=== PATIENT | male | born 1960 | race Caucasian/White ===

== ENCOUNTER 2017-07-20 15:47 | Emergency (ER) | payer MEDICARE ==
[~2017-07-20] VITALS: Ht 175.3 cm; Wt 71.2 kg
[~2017-07-20 15:47] MED LIST: AMOXICILLIN 50500 MG PO; ASPIR 8181 MG PO; ASPIR-TRIN325 MG PO; ASPIRIN325 PO; CARAFATE 1 GM TA1 G1 PO; CARAFATE 1 GM TA1 GM PO; CARAFATE 11 GM/10 M1 PO; CARAFATE1 GM PO; CLONAZEPAM 0.50.5 M1 PO; COLACE100 MG PO; DOXYCYCLINE 10100 MG PO; FLOMAX0.4 MG PO; GENTAMICIN SU3 MG/ML OPHTHALMIC; HYDROCHLOROTH12.5 M1 PO; HYDROCODON-ACE1 EA14 PO; HYDROCODON-ACE1 EAC7 PO; HYDROCODONE-AP1 EAC6 PO; HYDROCODONE-APA1 TA1 PO; IBUPROFEN 800800 M1 PO; LIDOPATCH1 EACH TOP; LIPITOR10 MG PO; LOVASTATIN 20 M20 MG PO; MIRALAX17 GM PO; NITROGLYCERIN0.4 MG SUBLING; NOHOMEMEDICATIONS; NORCO 10-325 T1 EACH PO; NORCO 5-325 TA1 EAC1 PO; OMEPRAZOLE 20 M20 M1 PO; OMEPRAZOLE40 MG PO; ONDANSETRON HCL4 M2 PO; PANTOPRAZOLE SO40 M1 PO; PENICILLIN VK500 MG PO; PRILOSEC 10MG C10 M1 PO; PROTONIX40 M1 PO; ROBAXIN500 MG PO; SARNA ANTI-ITC222 ML TP; TRAMADOL 50 MG50 MG PO; TRIAMCINOLONE A80 G2 TOP; TYLENOL325 MG PO; VENTOLIN HFA INH8 GM INH; VISTARIL 25 MG25 M1 PO; ZOFRAN ODT4 MG DISSOLVE; ZOFRAN ODT4 MG PO; ZOFRAN ODT4 MG SUBLING; ZPAK PO
[2017-07-20 16:22] LABS: ABSOLUTE EOSINOPHILS 0.1 thou/uL (0.0-0.7); ABSOLUTE LYMPHOCYTES 2.1 thou/uL (0.8-5.3); ABSOLUTE MONOCYTES 1.1 thou/uL (0.0-1.2); ABSOLUTE NEUTROPHILS 5.3 thou/uL (1.6-8.1); BASOPHILS 0.5 %; EOSINOPHILS 1.6 %; HEMATOCRIT 37.6 % (42.0-52.0); HEMOGLOBIN 13.2 gm/dL (14.0-18.0); LYMPHOCYTES 23.9 %; MCH 33.9 pg (26.0-34.0); MCHC 35.1 g/dL (28.0-37.0); MCV 96.7 fL (80.0-100.0); MONOCYTES 12.8 %; MPV 6.8 fl. (7.2-11.1); NUCLEATED RBCS 0 /100WBC; PLATELET COUNT* 269 thou/uL (150-400); POLYS 61.2 %; RBC 3.89 mil/uL (4.50-6.00); RDW-CV 13.8 % (10.5-14.5); WBC 8.6 thou/uL (4.0-11.0)
[2017-07-20 16:31] LABS: ANION GAP 9 mmol/L (7-16); BUN 14 mg/dL (7-18); CALCIUM 9.1 mg/dL (8.5-10.1); CHLORIDE 104 mmol/L (98-107); CO2 25 mmol/L (21-32); CREATININE 0.9 mg/dL (0.6-1.3); GLUCOSE 110 mg/dL (70-99); POTASSIUM 3.7 mmol/L (3.5-5.1); SODIUM 138 mmol/L (136-145)
[2017-07-20 16:38] LABS: ALBUMIN 3.5 g/dL (3.4-5.0); ALKALINE PHOSPHATASE 123 U/L (46-116); SGOT 28 U/L (15-37); SGPT 39 U/L (30-65); TOTAL BILIRUBIN 0.6 mg/dL (<0.1-1.0); TROPONIN-I LEVEL <0.06 ng/mL (<0.06)
[2017-07-20] MEDS ORDERED: BACTRIM DS TAB1 EACH PO (17:26)
[2017-07-20] MEDS ORDERED: KEFLEX500 M1 PO (17:26)
[2017-07-20 17:58] VITALS: BP 130/73
--- NOTE | 2017-07-21 14:36 | EKG ---
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: LUPE : 1960 Requested By: Mary Motley Order Number: [id number] MD: Christian Smith Measurements Intervals [place] Rate: 87 P: -11 [place]: 187 QRS: 6 QRSD: 84 T: 33 QT: 343 QTc: 413 Interpretive Statements Sinus rhythm Low voltage, precordial leads Minimal ST elevation, anterior leads Compared to ECG 07/06/2017 03:13:08 Myocardial infarct finding no longer present ST (T wave) deviation still present Electronically Signed On 07-21-2017 14:36:53 KALSOMINER by Christian Smith [email or web address] <ELECTRONICALLY SIGNED> By: Christian Smith MD, [facility] 07/21/17 1436 1614 1614 Christian Smith MD, [facility] /EPI
== END 2017-07-20 18:00 | disposition home or self-care (01) ==
LOC: M.ERS 15:47
PROVIDERS: Physician Assistant
DX: L03.115 Cellulitis of right lower limb (principal); F17.210 Nicotine dependence, cigarettes, uncomplicated; F10.99 Alcohol use, unspecified with unspecified alcohol-induced disorder; I25.2 Old myocardial infarction; Z86.73 Personal history of transient ischemic attack (TIA), and cerebral infarction without residual deficits; Z85.12 Personal history of malignant neoplasm of trachea; Z88.5 Allergy status to narcotic agent; Z90.49 Acquired absence of other specified parts of digestive tract; Z98.890 Other specified postprocedural states

== ENCOUNTER 2017-07-28 17:57 | Emergency (ER) | payer MEDICARE ==
[~2017-07-28] VITALS: Ht 175.3 cm; Wt 95.3 kg
[~2017-07-28 17:57] MED LIST changes: +BACTRIM DS TAB1 EACH PO; +KEFLEX500 M1 PO
[2017-07-28 18:34] LABS: ABSOLUTE BASOPHILS 0.1 thou/uL (0.0-0.2); ABSOLUTE EOSINOPHILS 0.1 thou/uL (0.0-0.7); ABSOLUTE LYMPHOCYTES 2.7 thou/uL (0.8-5.3); ABSOLUTE MONOCYTES 0.8 thou/uL (0.0-1.2); ABSOLUTE NEUTROPHILS 4.2 thou/uL (1.6-8.1); BASOPHILS 0.7 %; EOSINOPHILS 1.7 %; HEMATOCRIT 41.5 % (42.0-52.0); HEMOGLOBIN 14.4 gm/dL (14.0-18.0); LYMPHOCYTES 34.2 %; MCH 33.9 pg (26.0-34.0); MCHC 34.7 g/dL (28.0-37.0); MCV 97.6 fL (80.0-100.0); MONOCYTES 10.5 %; MPV 6.8 fl. (7.2-11.1); NUCLEATED RBCS 0 /100WBC; PLATELET COUNT* 290 thou/uL (150-400); POLYS 52.9 %; RBC 4.26 mil/uL (4.50-6.00); RDW-CV 13.4 % (10.5-14.5)
[2017-07-28 18:42] LABS: CALCIUM 8.9 mg/dL (8.5-10.1); CREATININE 0.9 mg/dL (0.6-1.3); POTASSIUM 4.4 mmol/L (3.5-5.1)
[2017-07-28 18:46] LABS: ALBUMIN 3.2 g/dL (3.4-5.0); TOTAL BILIRUBIN 0.2 mg/dL (<0.1-1.0); TOTAL PROTEIN 6.9 g/dL (6.4-8.2)
[2017-07-28 19:22] VITALS: BP 132/85
== END 2017-07-28 19:22 | disposition home or self-care (01) ==
LOC: M.ERS 17:57
PROVIDERS: Physician Assistant
DX: R10.84 Generalized abdominal pain (principal); F17.210 Nicotine dependence, cigarettes, uncomplicated; I25.2 Old myocardial infarction; C14.0 Malignant neoplasm of pharynx, unspecified; N19 Unspecified kidney failure; I82.409 Acute embolism and thrombosis of unspecified deep veins of unspecified lower extremity; K85.90 Acute pancreatitis without necrosis or infection, unspecified; Z88.5 Allergy status to narcotic agent; Z98.890 Other specified postprocedural states; Z90.49 Acquired absence of other specified parts of digestive tract

== ENCOUNTER 2017-07-30 07:46 | Emergency (ER) | payer MEDICARE ==
[~2017-07-30] VITALS: Ht 175.3 cm; Wt 71.7 kg
[2017-07-30 08:19] LABS: URINE BILIRUBIN NEGATIVE (Negative); URINE BLOOD NEGATIVE (Negative); URINE CLARITY CLEAR; URINE COLOR YELLOW; URINE GLUCOSE-RANDOM NEGATIVE (Negative); URINE KETONES NEGATIVE (Negative); URINE LEUKOCYTES-REFLEX NEGATIVE (Negative); URINE NITRITE-REFLEX NEGATIVE (Negative); URINE PROTEIN NEGATIVE (Negative); URINE SPECIFIC GRAVITY 1.025 (1.005-1.030); URINE UROBILINOGEN 0.2 E.U./dl (0.2-1.0)
[2017-07-30 08:36] LABS: ABSOLUTE BASOPHILS 0.1 thou/uL (0.0-0.2); ABSOLUTE EOSINOPHILS 0.1 thou/uL (0.0-0.7); ABSOLUTE LYMPHOCYTES 2.5 thou/uL (0.8-5.3); ABSOLUTE MONOCYTES 0.7 thou/uL (0.0-1.2); ABSOLUTE NEUTROPHILS 3.6 thou/uL (1.6-8.1); BASOPHILS 0.9 %; EOSINOPHILS 1.8 %; HEMATOCRIT 43.7 % (42.0-52.0); HEMOGLOBIN 15.4 gm/dL (14.0-18.0); LYMPHOCYTES 35.7 %; MCH 33.7 pg (26.0-34.0); MCHC 35.2 g/dL (28.0-37.0); MCV 95.7 fL (80.0-100.0); MONOCYTES 10.2 %; MPV 6.9 fl. (7.2-11.1); NUCLEATED RBCS 0 /100WBC; PLATELET COUNT* 292 thou/uL (150-400); POLYS 51.4 %; RBC 4.56 mil/uL (4.50-6.00); RDW-CV 13.7 % (10.5-14.5)
[2017-07-30 08:48] LABS: CALCIUM 8.9 mg/dL (8.5-10.1); CREATININE 0.7 mg/dL (0.6-1.3); POTASSIUM 4.3 mmol/L (3.5-5.1)
[2017-07-30 08:53] LABS: ALBUMIN 3.4 g/dL (3.4-5.0); TOTAL BILIRUBIN 0.2 mg/dL (<0.1-1.0); TOTAL PROTEIN 7.3 g/dL (6.4-8.2)
[2017-07-30] MEDS ORDERED: FLOMAX0.4 MG PO (09:09)
[2017-07-30] MEDS ORDERED: NAPROSYN500 MG PO (09:09)
[2017-07-30 09:24] VITALS: BP 150/95
== END 2017-07-30 09:26 | disposition home or self-care (01) ==
LOC: M.ERS 07:46
PROVIDERS: Personal Emergency Response Attendant
DX: N20.0 Calculus of kidney (principal); I25.2 Old myocardial infarction; N19 Unspecified kidney failure; F10.99 Alcohol use, unspecified with unspecified alcohol-induced disorder; Z95.5 Presence of coronary angioplasty implant and graft; Z86.718 Personal history of other venous thrombosis and embolism; Z98.890 Other specified postprocedural states; Z87.19 Personal history of other diseases of the digestive system; Z88.4 Allergy status to anesthetic agent; Z88.5 Allergy status to narcotic agent; F17.210 Nicotine dependence, cigarettes, uncomplicated

== ENCOUNTER 2017-08-02 18:32 | Inpatient (IN) | payer MEDICARE ==
[~2017-08-02] VITALS: Ht 152.4 cm; Wt 81.6 kg
[~2017-08-02 18:32] MED LIST changes: +NAPROSYN500 MG PO
[2017-08-02 19:00] LABS: ABSOLUTE BASOPHILS 0.1 thou/uL (0.0-0.2); ABSOLUTE EOSINOPHILS 0.2 thou/uL (0.0-0.7); ABSOLUTE MONOCYTES 0.9 thou/uL (0.0-1.2); ABSOLUTE NEUTROPHILS 5.8 thou/uL (1.6-8.1); EOSINOPHILS 1.5 %; HEMATOCRIT 44.7 % (42.0-52.0); LYMPHOCYTES 30.2 %; MCH 34.2 pg (26.0-34.0); MCHC 35.7 g/dL (28.0-37.0); MCV 95.9 fL (80.0-100.0); MONOCYTES 9.3 %; MPV 7.1 fl. (7.2-11.1); NUCLEATED RBCS 0 /100WBC; PLATELET COUNT* 298 thou/uL (150-400); RBC 4.66 mil/uL (4.50-6.00); RDW-CV 13.3 % (10.5-14.5)
[2017-08-02 19:08] LABS: ANION GAP 12 mmol/L (7-16); BUN 19 mg/dL (7-18); CALCIUM 8.6 mg/dL (8.5-10.1); CHLORIDE 100 mmol/L (98-107); CO2 21 mmol/L (21-32); CREATININE 0.9 mg/dL (0.6-1.3); GLUCOSE 141 mg/dL (70-99); POTASSIUM 4.2 mmol/L (3.5-5.1); SODIUM 133 mmol/L (136-145)
[2017-08-02 19:13] LABS: APTT 24.6 Seconds (25.0-31.3); PROTIME 9.4 Seconds (9.20-11.50)
[2017-08-02 19:23] LABS: TROPONIN-I LEVEL <0.06 ng/mL (<0.06)
[2017-08-02 21:46] VITALS: BP 107/64
[2017-08-02 22:00] VITALS: BP 116/85
[2017-08-02 23:00] VITALS: BP 128/79
[2017-08-02 23:30] VITALS: BP 123/80
[2017-08-03] VITALS (13 sets, daily range): BP systolic 92–132; BP diastolic 45–556
[2017-08-03 06:28] LABS: ANION GAP 7 mmol/L (7-16); BUN 17 mg/dL (7-18); CALCIUM 9.1 mg/dL (8.5-10.1); CHLORIDE 104 mmol/L (98-107); CO2 26 mmol/L (21-32); CREATININE 0.9 mg/dL (0.6-1.3); GLUCOSE 108 mg/dL (70-99); POTASSIUM 4.6 mmol/L (3.5-5.1); SODIUM 137 mmol/L (136-145)
[2017-08-03 06:35] LABS: ALBUMIN 3.2 g/dL (3.4-5.0); ALKALINE PHOSPHATASE 120 U/L (46-116); SGOT 32 U/L (15-37); SGPT 69 U/L (30-65); TOTAL BILIRUBIN 0.2 mg/dL (<0.1-1.0); TOTAL PROTEIN 6.5 g/dL (6.4-8.2)
[2017-08-03 06:55] LABS: TROPONIN-I LEVEL <0.06 ng/mL (<0.06)
[2017-08-03 09:40] LABS: AMP/METHAMP Negative (Negative); BARBITURATES Negative (Negative); BENZODIAZEPINES Negative (Negative); COCAINE Negative (Negative); METHADONE Negative (Negative); OPIATES POSITIVE (Negative); PCP Negative (Negative); THC Negative (Negative)
[2017-08-03] MEDS ORDERED: DILTIAZEM 24HR180 M1 PO (12:41)
--- NOTE | 2017-08-03 13:01 | CARD ---
[address] [address] CARDIAC CATH REPORT Name: MARNIETERESA BUSTAMANTE Room: 005-P ADM IN .R.#: [id number] Admission: 08/02/17 Attend Phys: Charli Das MD Discharge: Date of : 64 Report #: [id number] THIS REPORT FOR: //name// APPROVED REPORT Patient Details Patient Status: In-Patient Room #: 005 The patient is a 57 year-old male Event Personnel Rashad Allan Charge Account Identification Clerk, Renae iGll RN Sub Assembly Team Worker, Alina Lebron RTR Scrub, Hollie Hooper Monitor, Linda Pandya RN, RN Procedures Performed Left Heart Catheterization, Selective Right and Left Coronary Angiography Procedure Narrative A 6fr Ultimum Sheath sheath was inserted into the . Coronary angiography was performed using coronary diagnostic catheters. The right coronary system was accessed and visualized with a Diagnostic 6fr jr4 catheter. The left coronary system was accessed and visualized with a Diagnostic 6f jl4 catheter. The left ventricle was accessed and visualized with a Diagnostic 6f pigtail catheter. Left ventricular/Aortic Valve gradient assessed via catheter pullback. Left ventriculogram was performed in NELSON projection. Pre-demployment femoral angiogram was performed . Closure device was deployed with a 6 Fr MynxGrip 6/7F. Hemostasis was obtained with manual pressure following sheath removal without any complications. The patient tolerated the procedure well and there were no complications associated with the procedure. There was no hematoma. Intraoperative Conscious Sedation Sedation start time: 10:42 Case end Time: 10:56 Versed 2 mg Fluoro Time: 1.6 minutes Dose: DAP 70695 cGycm2 690.11 mGy Contrast Type and Amount: Omnipaque 160 ml Coronary Angiography The patient's coronary [place] [address] CARDIAC CATH REPORT Name: MARNIETERESA BUSTAMANTE Room: [address] IN [facility].#: [id number] Admission: 08/02/17 Attend Phys: Charli Das MD Discharge: Date of : 64 Report #: [id number] Diagnostic Cath Left Main The left main coronary artery is normal and bifurcates into the left anterior descending and circumflex coronary arteries. LAD The left anterior descending coronary artery has 30% narrowing proximally, 20% narrowing midportion and 10% narrowing in the apical portion. Diagonal 1 The first diagonal branch is large and branched and normal. Circumflex The circumflex proper is normal in its proximal mid and distal portion. OM1 The first obtuse marginal branch has 20% narrowing proximally. The remainder of the vessel is free of significant disease. OM2 The second obtuse marginal branch is 10% narrowing proximally. The remainder of the vessel is free of significant disease. Right Coronary The right coronary artery is 10% narrowed in its proximal portion 10% narrowed in its midportion and free of significant atherosclerosis in its distal portion. There is a focal area of myocardial bridging in the distal vessel. R PDA The right PDA is a moderate to large size branch that is normal. RPLV The right posterior lateral LV branch is a small branch that is normal. Left Ventriculography The overall left ventricular systolic function appears to be well preserved with an ejection fraction estimated to be 60-65%. There is a moderate portion of the apex appears akinetic. Hemodynamics The aortic pressure is 98/59 mmHg with a mean of 75 mmHg. The left ventricular pressure is 103/4 mmHg with a mean of mmHg. The left ventricular end diastolic pressure is 10 mmHg. There was no gradient across the aortic valve upon pullback. Pullback from the left ventricle to the aorta revealed no gradient across the aortic valve. Conclusion 1. Mild atherosclerotic coronary artery disease as outlined above. 2. Apical wall motion abnormality consistent with prior infarct. 3. Preserved left ventricular systolic function. 4. Normal left ventricular end-diastolic [place] [address] CARDIAC CATH REPORT Name: TERESA DYE Room: [address] IN [facility].#: [id number] Admission: 08/02/17 Attend Phys: Charli Das MD Discharge: Date of : 64 Report #: [id number] 1. Continue aggressive risk factor modification and medical management. <ELECTRONICALLY SIGNED> By: Rashad Allan MD, FACNiru 08/03/17 1300 1300 1300Rashad Allan MD, FACNiru /INF
--- NOTE | 2017-08-03 14:42 | EKG ---
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: MS : 1960 Requested By: Juan Pablo Fan Order Number: [id number] [place] MD: Rashad Allan Measurements Intervals [place] Rate: 93 P: 51 NV: 171 QRS: 7 QRSD: 84 T: 77 QT: 316 QTc: 393 Interpretive Statements Sinus rhythm Anterior infarct, old Compared to ECG 07/20/2017 16:14:20 Myocardial infarct finding now present ST (T wave) deviation no longer present Electronically Signed On 08-03-2017 14:41:49 FILM SPOOLER by Rashad Allan [email or web address] <ELECTRONICALLY SIGNED> By: Rashad Allan MD, FAC 08/03/17 1441 1845 1845 Rashad Allan MD, [facility] /EPI
--- NOTE | 2017-08-03 14:42 | EKG ---
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: AJ : 1960 Requested By: Nima Rodrigues Order Number: [id number] MD: Rashad Allan Measurements Intervals [place] Rate: 91 P: -7 MS: 174 QRS: 15 QRSD: 82 T: 58 QT: 326 QTc: 402 Interpretive Statements Sinus rhythm Probable anteroseptal infarct, age indeterminate Compared to ECG 07/20/2017 16:14:20 Myocardial infarct finding now present ST (T wave) deviation no longer present Electronically Signed On 08-03-2017 14:42:00 STRIPPER BLACK AND WHITE by Rashad Allan [email or web address] <ELECTRONICALLY SIGNED> By: Rashad Allan MD, FACC 08/03/17 1442 25 25 Rashad Allan MD, FAC /EPI
--- NOTE | 2017-08-03 14:44 | EKG ---
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: : 1960 Requested By: Nima Rodrigues Order Number: [id number] Carolina MD: Rashad Allan Measurements Intervals [place] Rate: 72 P: 5 [place]: 191 QRS: 2 QRSD: 84 T: 57 QT: 359 QTc: 393 Interpretive Statements Sinus rhythm Low voltage, precordial leads Inferior infarct age indeterminate Minimal ST elevation, anterior leads Compared to ECG 07/20/2017 16:14:20 No significant changes Electronically Signed On 08-03-2017 14:44:40 LINING SCRUBBER by Rashad Allan [email or web address] <ELECTRONICALLY SIGNED> By: Rashad Allan MD, FAC 08/03/17 1444 2314 2314 Rashad Allan MD, [facility] /EPI
--- NOTE | 2017-08-03 14:45 | EKG ---
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: : 1960 Requested By: Juan Pablo Fan Order Number: [id number] Carolina MD: Rashad Allan Measurements Intervals [place] Rate: 60 P: -3 [place]: 190 QRS: -7 QRSD: 86 T: 48 QT: 368 QTc: 368 Interpretive Statements Sinus rhythm Low voltage, precordial leads Minimal ST elevation, anterior leads Compared to ECG 07/20/2017 16:14:20 No significant changes Electronically Signed On 08-03-2017 14:45:44 SALES PRODUCT MANAGER by Rashad Allan [email or web address] <ELECTRONICALLY SIGNED> By: Rashad Allan MD, [facility] 08/03/17 1445 0803 0803 Rashad Allan MD, [facility] /EPI
[2017-08-04] VITALS: BP 116/63
[2017-08-04 04:00] VITALS: BP 123/60
[2017-08-04 04:43] LABS: HEMATOCRIT 38.2 % (42.0-52.0); MCH 33.3 pg (26.0-34.0); MCHC 34.6 g/dL (28.0-37.0); MCV 96.2 fL (80.0-100.0); MPV 7.1 fl. (7.2-11.1); NUCLEATED RBCS 0 /100WBC; PLATELET COUNT* 228 thou/uL (150-400); RBC 3.97 mil/uL (4.50-6.00); RDW-CV 13.3 % (10.5-14.5); WBC 8.7 thou/uL (4.0-11.0)
[2017-08-04 04:50] LABS: CALCIUM 8.9 mg/dL (8.5-10.1); CREATININE 0.9 mg/dL (0.6-1.3); POTASSIUM 4.4 mmol/L (3.5-5.1)
[2017-08-04 04:54] LABS: HEMOGLOBIN 13.2 gm/dL (14.0-18.0)
[2017-08-04 06:27] LABS: ABSOLUTE EOSINOPHILS 0.3 thou/uL (0.0-0.7); ABSOLUTE LYMPHOCYTES 2.6 thou/uL (0.8-5.3); ABSOLUTE MONOCYTES 0.6 thou/uL (0.0-1.2); ABSOLUTE NEUTROPHILS 5.2 thou/uL (1.6-8.1)
[2017-08-04 06:28] LABS: PLATELET ESTIMATE ADEQUATE
[2017-08-04 08:55] VITALS: BP 112/57
--- NOTE | 2017-08-04 09:11 | CON ---
[address] [address] CONSULTATION Name: TERESA DYE Room: [address] IN M.R.#: [id number] Admission: 08/02/17 Attend Phys: Charli Das MD Discharge: Date of : 64 Report #: [id number] THIS REPORT FOR: //name// CC: [facility] physician/PCP Charli Das INDICATION: Chest pain and abnormal EKG. HISTORY OF PRESENT ILLNESS: The patient is a 57-year-old gentleman with history of coronary artery disease. 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 At that time, he had a failed intervention. He has fixed inferoapical defect from this prior infarct. Catheterization in 2013, showed no occlusive disease. The apical LAD was not mentioned per se. The patient presented to the hospital with midsternal chest discomfort radiating to the left shoulder and arm associated with diaphoresis and shortness of breath. This was sudden in onset yesterday after eating. The pain resolved after nitroglycerin, aspirin, and morphine. EKG shows persistent ST elevation in the anterior leads and Q-waves in the inferior leads. Troponin is less than 0.06. At the time of interview, the patient is not having chest pain. He is without other cardiac complaint at this time. PAST MEDICAL HISTORY: 1. Coronary artery disease as outlined above. 2. Tobacco use. 3. Hyperlipidemia. 4. Hypertension. 5. Figueroa's esophagitis. 6. Throat cancer. PAST SURGICAL HISTORY: 1. Previous back surgery. 2. Appendectomy. 3. Shoulder surgery. 4. Cholecystectomy. SOCIAL HISTORY: The patient smokes half a pack of cigarettes daily. He drinks alcohol occasionally. He has a history of polysubstance abuse in the past. FAMILY HISTORY: Father of esophageal cancer at age 57. The patient's mother has history of TIA. There was no history of premature atherosclerotic coronary artery disease. REVIEW OF SYSTEMS: He reports a cough that is nonproductive. He has chest discomfort as outlined above. He has dyspnea on exertion. He reports syncope last week. He reports dark stools last Sunday. He reports a history of throat cancer, medically treated in the past. He has a history of DVT and PE. He reports medical allergies to FENTANYL and CODEINE. He has dentures. Otherwise, [place] [address] CONSULTATION Name: MARNIETERESA MUNOZERY Room: [address]#: [id number] Admission: 08/02/17 Attend Phys: Charli Das MD Discharge: Date of : 64 Report #: [id number] 14-point review of systems unremarkable. PHYSICAL EXAMINATION: VITAL SIGNS: Stable. Blood pressure 100/73, pulse 62 and regular. GENERAL: This is a pleasant gentleman who does not appear to be in distress. Mood and affect appropriate. HEENT: Extraocular muscles are intact. Mucous membranes are moist. NECK: Shows no jugular venous distention. There are no carotid bruits. CHEST: Reveals clear lung feliz without wheezes or rales. CARDIAC: Reveals a regular rhythm with normal S1 and S2. I do not appreciate gallop or murmur. ABDOMEN: Reveals normal bowel sounds. The abdomen is soft and nontender. EXTREMITIES: Shows no edema. Peripheral pulses are 2+ and easily palpable. SKIN: Warm and dry. A 12-lead EKG shows ST elevation in the anterior leads that appears to be persistent. There are Q-waves inferiorly, suggesting prior inferior infarct. Labs are reviewed. Troponin less than 0.06. Chest x-ray shows no acute cardiopulmonary abnormality. IMPRESSION AND RECOMMENDATIONS: 1. Chest discomfort, suspicious for unstable angina. The patient with history of coronary artery disease. We will proceed with cardiac catheterization. Further intervention will be pending the results of that study. 2. Coronary artery disease, recommend continue daily aspirin. We would check fasting lipid profile. We would treat for goal LDL of 100 or less. 3. Hypertension. Blood pressure low normal presently. We will follow. 4. Chronic tobacco abuse, cessation advised. <ELECTRONICALLY SIGNED> By: Rashad Allan MD, FACC 08/04/17 0911 0953 1536Micalbin Allan MD, FACC /nt
[2017-08-04 09:27] LABS: CHOLESTEROL 165 mg/dL (<200); HDL CHOLESTEROL 22 mg/dL (>40); LDL CHOLESTEROL 70 mg/dL (<100); TC:HDL 7.5 Ratio (Not establshd); TRIGLYCERIDE 368 mg/dL (<150); VLDL 74 mg/dL (<40)
[2017-08-04 09:29] LABS: SERUM ASSESSMENT Clear
[2017-08-04 10:53] VITALS: BP 112/57
[2017-08-04] MEDS ORDERED: ASPIRIN325 PO (10:53)
== END 2017-08-04 11:25 | disposition home or self-care (01) | DRG 392 ==
LOC: M.ERS 18:32 → M.ICU 19:28 → M.TBA-ER 19:28 → M.ICU 21:43 → M.2W 08-03 17:48
PROVIDERS: Emergency Medicine; Internal Medicine; Internal Medicine Cardiovascular Disease; ADMIT Internal Medicine
PROC: B2111ZZ Fluoroscopy of Multiple Coronary Arteries using Low Osmolar Contrast (ICD-10-PCS; principal; 2017-08-02)
PROC: 4A023N7 Measurement of Cardiac Sampling and Pressure, Left Heart, Percutaneous Approach (ICD-10-PCS; principal; 2017-08-02)
PROC: B2151ZZ Fluoroscopy of Left Heart using Low Osmolar Contrast (ICD-10-PCS; principal; 2017-08-02)
DX: K21.9 Gastro-esophageal reflux disease without esophagitis (principal); K22.70 Barrett's esophagus without dysplasia; F17.210 Nicotine dependence, cigarettes, uncomplicated; I10 Essential (primary) hypertension; E78.5 Hyperlipidemia, unspecified; Z96.612 Presence of left artificial shoulder joint; Z96.653 Presence of artificial knee joint, bilateral; Z85.89 Personal history of malignant neoplasm of other organs and systems; Z86.73 Personal history of transient ischemic attack (TIA), and cerebral infarction without residual deficits; I25.2 Old myocardial infarction; Z86.718 Personal history of other venous thrombosis and embolism; Z90.49 Acquired absence of other specified parts of digestive tract; Z88.6 Allergy status to analgesic agent; Z88.8 Allergy status to other drugs, medicaments and biological substances; Z80.0 Family history of malignant neoplasm of digestive organs; Z95.5 Presence of coronary angioplasty implant and graft; Z91.19 Patient's noncompliance with other medical treatment and regimen; Z79.899 Other long term (current) drug therapy; I25.10 Atherosclerotic heart disease of native coronary artery without angina pectoris

== ENCOUNTER 2017-08-05 16:11 | Emergency (ER) | payer MEDICARE ==
[~2017-08-05] VITALS: Ht 175.3 cm; Wt 66.7 kg
[~2017-08-05 16:11] MED LIST changes: +DILTIAZEM 24HR180 M1 PO
[2017-08-05 17:11] VITALS: BP 141/95
== END 2017-08-05 17:12 | disposition home or self-care (01) ==
LOC: M.ERS 16:11
DX: G89.18 Other acute postprocedural pain (principal); I25.2 Old myocardial infarction; N19 Unspecified kidney failure; F17.210 Nicotine dependence, cigarettes, uncomplicated; F10.99 Alcohol use, unspecified with unspecified alcohol-induced disorder; Z95.5 Presence of coronary angioplasty implant and graft; Z98.890 Other specified postprocedural states; Z86.718 Personal history of other venous thrombosis and embolism; Z87.19 Personal history of other diseases of the digestive system; Z88.5 Allergy status to narcotic agent; Z88.4 Allergy status to anesthetic agent

== ENCOUNTER 2017-08-08 20:32 | Emergency (ER) | payer MEDICARE ==
[~2017-08-08] VITALS: Ht 175.3 cm; Wt 67.1 kg
[2017-08-08 20:36] VITALS: BP 136/88
[2017-08-08] MEDS ORDERED: FLEXERIL PO (20:56)
--- NOTE | 2017-08-14 16:24 | EKG ---
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 Singer: AGNES : 1960 Requested By: Jostin Colin Order Number: [id number] MD: Rashad Allan Measurements Intervals [place] Rate: 72 P: 35 MS: 197 QRS: 16 QRSD: 85 T: 33 QT: 386 QTc: 423 Interpretive Statements Sinus rhythm Early repolarization in anterior leads Low voltage, precordial leads Compared to ECG 08/03/2017 08:03:36 ST (T wave) deviation no longer present Electronically Signed On 08-14-2017 16:24:22 TEEN COUNSELOR by Rashad Allan [email or web address] <ELECTRONICALLY SIGNED> By: Rashad Allan MD, FAC 08/14/17 1624 2154 2154 Rashad Allan MD, [facility] /EPI
== END 2017-08-08 21:05 | disposition home or self-care (01) ==
LOC: M.ERS 20:32
DX: S46.812A Strain of other muscles, fascia and tendons at shoulder and upper arm level, left arm, initial encounter (principal); F17.210 Nicotine dependence, cigarettes, uncomplicated; Z86.718 Personal history of other venous thrombosis and embolism; Z90.49 Acquired absence of other specified parts of digestive tract; Z88.5 Allergy status to narcotic agent; X50.1XXA Overexertion from prolonged static or awkward postures, initial encounter; Y93.89 Activity, other specified; Y92.89 Other specified places as the place of occurrence of the external cause; Y99.8 Other external cause status

== ENCOUNTER 2017-08-13 20:22 | Emergency (ER) | payer MEDICARE ==
[~2017-08-13] VITALS: Ht 175.3 cm; Wt 65.3 kg
[~2017-08-13 20:22] MED LIST changes: +FLEXERIL PO
[2017-08-13 21:17] LABS: ABSOLUTE BASOPHILS 0.1 thou/uL (0.0-0.2); ABSOLUTE EOSINOPHILS 0.2 thou/uL (0.0-0.7); ABSOLUTE LYMPHOCYTES 2.1 thou/uL (0.8-5.3); ABSOLUTE NEUTROPHILS 5.3 thou/uL (1.6-8.1); BASOPHILS 0.7 %; EOSINOPHILS 2.3 %; HEMOGLOBIN 12.5 gm/dL (14.0-18.0); LYMPHOCYTES 24.5 %; MCH 33.6 pg (26.0-34.0); MCHC 34.8 g/dL (28.0-37.0); MCV 96.4 fL (80.0-100.0); MONOCYTES 11.5 %; NUCLEATED RBCS 0 /100WBC; PLATELET COUNT* 253 thou/uL (150-400); RBC 3.73 mil/uL (4.50-6.00); RDW-CV 13.4 % (10.5-14.5); WBC 8.7 thou/uL (4.0-11.0)
[2017-08-13 21:25] LABS: ANION GAP 8 mmol/L (7-16); BUN 25 mg/dL (7-18); CALCIUM 8.7 mg/dL (8.5-10.1); CHLORIDE 104 mmol/L (98-107); CO2 25 mmol/L (21-32); GLUCOSE 106 mg/dL (70-99); POTASSIUM 3.4 mmol/L (3.5-5.1); SODIUM 137 mmol/L (136-145)
[2017-08-13 21:29] LABS: PROTIME 10.1 Seconds (9.20-11.50)
[2017-08-13 21:32] LABS: ALBUMIN 3.3 g/dL (3.4-5.0); ALKALINE PHOSPHATASE 111 U/L (46-116); SGOT 41 U/L (15-37); SGPT 48 U/L (30-65); TOTAL BILIRUBIN 0.4 mg/dL (<0.1-1.0); TOTAL PROTEIN 6.7 g/dL (6.4-8.2); TROPONIN-I LEVEL <0.06 ng/mL (<0.06)
[2017-08-13 22:35] VITALS: BP 120/65
== END 2017-08-13 22:36 | disposition home or self-care (01) ==
LOC: M.ERS 20:22
PROVIDERS: Nurse Practitioner Family
DX: R60.0 Localized edema (principal); Z86.73 Personal history of transient ischemic attack (TIA), and cerebral infarction without residual deficits; Z86.718 Personal history of other venous thrombosis and embolism; Z90.49 Acquired absence of other specified parts of digestive tract; Z88.5 Allergy status to narcotic agent; Z88.8 Allergy status to other drugs, medicaments and biological substances; F17.210 Nicotine dependence, cigarettes, uncomplicated

== ENCOUNTER 2017-09-02 15:06 | Emergency (ER) | payer MEDICARE ==
[~2017-09-02] VITALS: Ht 175.3 cm; Wt 66.7 kg
[2017-09-02 16:01] LABS: ABSOLUTE EOSINOPHILS 0.2 thou/uL (0.0-0.7); ABSOLUTE LYMPHOCYTES 2.3 thou/uL (0.8-5.3); ABSOLUTE MONOCYTES 0.7 thou/uL (0.0-1.2); ABSOLUTE NEUTROPHILS 3.4 thou/uL (1.6-8.1); BASOPHILS 0.5 %; EOSINOPHILS 2.6 %; HEMATOCRIT 37.4 % (42.0-52.0); HEMOGLOBIN 13.1 gm/dL (14.0-18.0); LYMPHOCYTES 34.7 %; MCH 34.4 pg (26.0-34.0); MCHC 34.9 g/dL (28.0-37.0); MCV 98.5 fL (80.0-100.0); MONOCYTES 10.4 %; MPV 7.4 fl. (7.2-11.1); NUCLEATED RBCS 0 /100WBC; PLATELET COUNT* 223 thou/uL (150-400); POLYS 51.8 %; RDW-CV 13.3 % (10.5-14.5); WBC 6.5 thou/uL (4.0-11.0)
[2017-09-02 16:03] LABS: CALCIUM 8.3 mg/dL (8.5-10.1); CREATININE 0.9 mg/dL (0.6-1.3); POTASSIUM 3.9 mmol/L (3.5-5.1)
[2017-09-02 16:08] LABS: ALBUMIN 3.1 g/dL (3.4-5.0); TOTAL BILIRUBIN 0.2 mg/dL (<0.1-1.0); TOTAL PROTEIN 6.4 g/dL (6.4-8.2)
[2017-09-02 16:46] VITALS: BP 160/92
== END 2017-09-02 16:47 | disposition home or self-care (01) ==
LOC: M.ERS 15:06
PROVIDERS: Physician Assistant
DX: R10.30 Lower abdominal pain, unspecified (principal); N50.811 Right testicular pain; N50.812 Left testicular pain; F17.210 Nicotine dependence, cigarettes, uncomplicated; Z86.73 Personal history of transient ischemic attack (TIA), and cerebral infarction without residual deficits; Z86.718 Personal history of other venous thrombosis and embolism; Z90.49 Acquired absence of other specified parts of digestive tract; Z88.5 Allergy status to narcotic agent

== ENCOUNTER 2017-10-12 01:27 | Emergency (ER) | payer MEDICARE ==
[~2017-10-12] VITALS: Ht 175.3 cm; Wt 64.4 kg
[2017-10-12 01:55] LABS: URINE BILIRUBIN NEGATIVE (Negative); URINE BLOOD NEGATIVE (Negative); URINE CLARITY CLEAR; URINE COLOR YELLOW; URINE GLUCOSE-RANDOM NEGATIVE (Negative); URINE KETONES NEGATIVE (Negative); URINE LEUKOCYTES-REFLEX NEGATIVE (Negative); URINE NITRITE-REFLEX NEGATIVE (Negative); URINE PROTEIN NEGATIVE (Negative); URINE SPECIFIC GRAVITY >= 1.030 (1.005-1.030); URINE UROBILINOGEN 0.2 E.U./dl (0.2-1.0)
[2017-10-12 02:09] LABS: AMP/METHAMP Negative (Negative); BARBITURATES Negative (Negative); BENZODIAZEPINES Negative (Negative); COCAINE Negative (Negative); METHADONE Negative (Negative); OPIATES Negative (Negative); PCP Negative (Negative); THC Negative (Negative)
[2017-10-12 02:51] LABS: CALCIUM 9.6 mg/dL (8.5-10.1); CREATININE 0.8 mg/dL (0.6-1.3); POTASSIUM 4.4 mmol/L (3.5-5.1)
[2017-10-12] MEDS ORDERED: HYDROCODONE-AP1 EAC6 PO (03:09)
[2017-10-12] MEDS ORDERED: FLOMAX0.4 MG PO (03:09)
[2017-10-12 03:29] VITALS: BP 174/98
== END 2017-10-12 03:29 | disposition home or self-care (01) ==
LOC: M.ERS 01:27
PROVIDERS: Emergency Medicine
DX: N23 Unspecified renal colic (principal); F17.210 Nicotine dependence, cigarettes, uncomplicated; Z86.73 Personal history of transient ischemic attack (TIA), and cerebral infarction without residual deficits; Z86.718 Personal history of other venous thrombosis and embolism; Z90.49 Acquired absence of other specified parts of digestive tract; Z88.5 Allergy status to narcotic agent

== ENCOUNTER → 2017-10-22 | Outpatient (CLI) | payer MEDICARE ==
[~2017-10-22] MED LIST changes: +BENTYL 20 MG TA20 M1 PO; +GABAPENTIN 100100 MG PO; +HYDROCODONE; +MEDROLDOSEPACK PO; +PROAIR HFA8.5 GM INH; +VENTOLIN HFA 1818 GM INH
--- NOTE | 2017-10-22 10:11 | EKG ---
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: : 1960 Requested By: Dheeraj Vail Order Number: [id number] Reading MD: Juan Pablo Fan Measurements Intervals [place] Rate: 70 P: 27 [place]: 214 QRS: 16 QRSD: 88 T: 40 QT: 374 QTc: 404 Interpretive Statements Sinus rhythm Prolonged [place] interval Low voltage, precordial leads Minimal ST elevation, early repolarization Compared to ECG 08/13/2017 21:54:16 no change Electronically Signed On 10-22-2017 10:11:04 CDT by Juan Pablo Fan [email or web address] <ELECTRONICALLY SIGNED> By: Juan Pablo Fan MD, [facility] 10/22/17 1011 1 1 Juan Pablo Fan MD, [facility] /EPI
== END ==
LOC: M.CT 07:26
DX: Z01.818 Encounter for other preprocedural examination (principal); N20.0 Calculus of kidney; J98.11 Atelectasis; R31.0 Gross hematuria; Z90.49 Acquired absence of other specified parts of digestive tract

== ENCOUNTER 2017-10-30 18:03 | Emergency (ER) | payer MEDICARE ==
[~2017-10-30] VITALS: Ht 175.3 cm; Wt 82.1 kg
[~2017-10-30 18:03] MED LIST changes: -BENTYL 20 MG TA20 M1 PO; -GABAPENTIN 100100 MG PO; -HYDROCODONE; -MEDROLDOSEPACK PO; -PROAIR HFA8.5 GM INH; -VENTOLIN HFA 1818 GM INH
[2017-10-30 18:21] LABS: URINE BILIRUBIN NEGATIVE (Negative); URINE BLOOD NEGATIVE (Negative); URINE CLARITY CLEAR; URINE COLOR YELLOW; URINE GLUCOSE-RANDOM NEGATIVE (Negative); URINE KETONES NEGATIVE (Negative); URINE LEUKOCYTES-REFLEX NEGATIVE (Negative); URINE NITRITE-REFLEX NEGATIVE (Negative); URINE PROTEIN NEGATIVE (Negative); URINE SPECIFIC GRAVITY 1.025 (1.005-1.030); URINE UROBILINOGEN 0.2 E.U./dl (0.2-1.0)
[2017-10-30 18:43] LABS: ABSOLUTE EOSINOPHILS 0.2 thou/uL (0.0-0.7); ABSOLUTE LYMPHOCYTES 2.6 thou/uL (0.8-5.3); ABSOLUTE NEUTROPHILS 5.4 thou/uL (1.6-8.1); BASOPHILS 0.4 %; EOSINOPHILS 1.6 %; HEMATOCRIT 39.9 % (42.0-52.0); HEMOGLOBIN 13.7 gm/dL (14.0-18.0); LYMPHOCYTES 28.1 %; MCH 33.7 pg (26.0-34.0); MCHC 34.5 g/dL (28.0-37.0); MCV 97.7 fL (80.0-100.0); MONOCYTES 10.9 %; MPV 7.1 fl. (7.2-11.1); NUCLEATED RBCS 0 /100WBC; PLATELET COUNT* 249 thou/uL (150-400); RBC 4.08 mil/uL (4.50-6.00); RDW-CV 13.3 % (10.5-14.5); WBC 9.2 thou/uL (4.0-11.0)
[2017-10-30 18:54] LABS: CALCIUM 8.6 mg/dL (8.5-10.1); CREATININE 0.8 mg/dL (0.6-1.3)
[2017-10-30 18:59] LABS: ALBUMIN 3.1 g/dL (3.4-5.0); TOTAL BILIRUBIN 0.1 mg/dL (<0.1-1.0); TOTAL PROTEIN 6.6 g/dL (6.4-8.2)
[2017-10-30] MEDS ORDERED: HYDROCODONE-AP1 EAC6 PO (19:19)
[2017-10-30 19:25] VITALS: BP 152/85
== END 2017-10-30 19:25 | disposition home or self-care (01) ==
LOC: M.ERS 18:03
PROVIDERS: Physician Assistant
DX: R10.12 Left upper quadrant pain (principal); F17.210 Nicotine dependence, cigarettes, uncomplicated; Z88.5 Allergy status to narcotic agent; Z90.49 Acquired absence of other specified parts of digestive tract

== ENCOUNTER 2017-11-25 23:27 | Emergency (ER) | payer MEDICARE ==
[~2017-11-25] VITALS: Ht 175.3 cm; Wt 76.2 kg
[2017-11-26 00:15] VITALS: BP 154/101
== END 2017-11-26 00:29 | disposition home or self-care (01) ==
LOC: M.ERS 23:27
DX: M25.571 Pain in right ankle and joints of right foot (principal); R21 Rash and other nonspecific skin eruption; F17.210 Nicotine dependence, cigarettes, uncomplicated; F19.10 Other psychoactive substance abuse, uncomplicated; Z86.73 Personal history of transient ischemic attack (TIA), and cerebral infarction without residual deficits; Z86.718 Personal history of other venous thrombosis and embolism; Z90.49 Acquired absence of other specified parts of digestive tract; Z88.5 Allergy status to narcotic agent

== ENCOUNTER → 2017-11-29 | Day surgery (SDC) | payer MEDICARE ==
[~2017-11-29] MED LIST changes: +BENTYL 20 MG TA20 M1 PO; +GABAPENTIN 100100 MG PO; +HYDROCODONE; +MEDROLDOSEPACK PO; +PROAIR HFA8.5 GM INH; +VENTOLIN HFA 1818 GM INH
--- NOTE | 2017-12-09 09:11 | PROC ---
[address] [address] PROCEDURE REPORT Name: TERESA DYE ROBBY Room: [facility].#: [id number] Admission: 11/29/17 Attend Phys: Dheeraj Vail MD Discharge: Date of : 64 Report #: [id number] THIS REPORT FOR: //name// CC: [facility] physician/PCP Dheeraj Vail DATE OF SERVICE: 11/29/2017 PREOPERATIVE DIAGNOSIS: Gross hematuria. POSTOPERATIVE DIAGNOSIS: Gross hematuria. PROCEDURE PERFORMED: Cystoscopy with bilateral retrograde pyelograms. SURGEON: Dheeraj Vail MD ANESTHESIA: Laryngeal mask airway. BRIEF HISTORY: The patient is a 57-year-old male who was referred to the office for evaluation of gross hematuria. He had undergone a prior noncontrast CT scan, which revealed a 4-5 mm left upper pole renal calculus. The recommendation was made for cystoscopy to complete his hematuria workup; however, the patient preferred to have the procedure done under anesthesia. We did discuss potential treatment options for his stone including ureteroscopic management versus shockwave lithotripsy. After consideration of the options, the patient preferred to proceed with cystoscopy and retrograde pyelograms alone today with future management of his stone to be determined. The risks of the procedure including the risks of bleeding, infection, damage to surrounding structures, need for additional procedures, and anesthetic risks were discussed with the patient and he wished to proceed. PROCEDURE IN DETAIL: Risks and benefits of surgery were discussed with the patient and he wished to proceed. Informed consent was obtained and the patient was transferred to the operating room where he was laid supine on the operating room table. After the induction of adequate general endotracheal anesthesia and the administration of appropriate preoperative antibiotics, the patient's legs were placed in a modified dorsal lithotomy position taking care to pad all pressure points and avoid any hyperextension or hyperflexion of his joints. The patient's genitalia were prepped and draped in the usual sterile fashion. At this time, a timeout was performed in order to ensure correct patient and procedure. A 22-Venezuelan cystoscope sheath with a 30-degree lens was then lubricated and advanced under direct vision and irrigation into the anterior urethra. There were no anterior urethral abnormalities identified. As the prostatic urethra was approached, there was noted to be mild lateral lobe enlargement without coaptation in the midline. The prostatic urethra was very short and nonobstructive. The cystoscope was [place] [address] PROCEDURE REPORT Name: TERESA DYE Room: [facility]#: [id number] Admission: 11/29/17 Attend Phys: Dheeraj Vail MD Discharge: Date of : 64 Report #: [id number] was disarticulated and the bladder was drained. A urine specimen was obtained and was passed off the table for cytology. Cystoscopy was then performed under direct vision and irrigation with both a 30 degree and 70 degree lens. The patient's ureteral orifices were found to be in their normal anatomic location and clear urine efflux was observed bilaterally. Systematic panendoscopy revealed no gross bladder wall pathology. There were no papillary bladder tumors or suspicious mucosal lesions identified. At this time, a 5-Venezuelan Pollack catheter was placed into the patient's right ureteral orifice and a right retrograde pyelogram was performed. Contrast could be seen filling the distal, mid and proximal right ureter as well as the right collecting system. There were no filling defects or signs of obstruction on right retrograde pyelogram. In similar fashion, the open-ended catheter was placed into the patient's left ureteral orifice and a left retrograde pyelogram was performed. Contrast could be seen filling the distal, mid and proximal left ureter as well as the left collecting system. There were no filling defects or signs of obstruction on left retrograde pyelogram. At this time, the open-ended catheter was removed, the cystoscope was disarticulated, and the bladder was drained. The cystoscope was removed and the patient's urethra was anesthetized with 2% lidocaine jelly. He was returned to the supine position, awakened from anesthesia and transferred to the postoperative care unit in stable condition. The patient tolerated the procedure well. COMPLICATIONS: None. ESTIMATED BLOOD LOSS: None. IV FLUIDS: Crystalloid. DRAINS: None. SPECIMENS: Urine for cytology. FINDINGS: 1. Normal anterior urethra. 2. Mild lateral prostate lobe enlargement, but short length prostate and no significant obstruction. 3. No gross bladder wall pathology. No papillary bladder tumors or suspicious mucosal lesions. 4. Normal bilateral retrograde pyelograms. <ELECTRONICALLY SIGNED> By: Dheeraj Vail MD 12/09/17 0911 0815 1014Rjean Vail MD /nt
--- NOTE | 2017-12-20 11:48 | PATH ---
[address] [address] PATHOLOGY RPT PROCEDURE Name: TERESA DYE Room: [facility]#: [id number] Admission: 11/29/17 Date of : 64 Discharge: Report #: [id number] Path Case #: [id number] Note [facility] Accession Number: [id number] TESTS RESULT FLAG UNITS REF RANGE LAB Clinician Provided Cytology Information No. of containers..01 Other (Miscellaneous) Source: BLADDER WASHING DIAGNOSIS: 01 BLADDER WASHING INCONCLUSIVE. ATYPICAL UROTHELIAL CELLS PRESENT COMMENT; THESE CAN BE SEEN WITH INSTRUMENTATION AND LOW GRADE LESIONS. SUGGEST CLINICAL CORRELATION. Amended report: 01 This is an amended report because inaccurate patient demographics were provided by the client. There is no change in the diagnosis. the patient's first name is changed from Smita to Teresa. Signed out by: 01 Curry Guzmán MD, Pathologist NPI- [id number] Performed by: 02 Gennaro Foster, Tool Inspector ([facility]) Gross description: 01 80 ML, YELLOW, CLEAR /LCS FLAG LEGEND: L-Low Normal,H-High Normal,LL-Alert Low,HH-Alert High <-Panic Low,>-Panic High,A-Abnormal,AA-Critical Abnormal Performed at: [address] [address] Yunior Weinberg MD, 02 [facility] [address] [address] Nic Espinoza MD, A duplicate report has been generated due to demographic update of the patient's Date of , Age, Gender, and/or Specimen Date. Please review patient results, reference intervals, and calculated results that may have been affected by this change. Performed at: [address] [id number] MD Yunior Weinberg MD Phone: [phone]
== END | disposition home or self-care (01) ==
LOC: M.SUR 11-22 10:32
DX: N20.0 Calculus of kidney (principal); R31.0 Gross hematuria; I25.10 Atherosclerotic heart disease of native coronary artery without angina pectoris; F17.210 Nicotine dependence, cigarettes, uncomplicated; G43.909 Migraine, unspecified, not intractable, without status migrainosus; Z90.49 Acquired absence of other specified parts of digestive tract; Z98.61 Coronary angioplasty status; Z87.442 Personal history of urinary calculi; Z87.19 Personal history of other diseases of the digestive system; Z88.8 Allergy status to other drugs, medicaments and biological substances; Z86.73 Personal history of transient ischemic attack (TIA), and cerebral infarction without residual deficits; Z79.899 Other long term (current) drug therapy; Z82.49 Family history of ischemic heart disease and other diseases of the circulatory system

== ENCOUNTER 2017-12-13 05:42 | Emergency (ER) | payer MEDICARE ==
[~2017-12-13] VITALS: Ht 175.3 cm; Wt 84.4 kg
[~2017-12-13 05:42] MED LIST changes: -BENTYL 20 MG TA20 M1 PO; -GABAPENTIN 100100 MG PO; -HYDROCODONE; -MEDROLDOSEPACK PO; -PROAIR HFA8.5 GM INH; -VENTOLIN HFA 1818 GM INH
[2017-12-13 06:09] LABS: ABSOLUTE EOSINOPHILS 0.2 thou/uL (0.0-0.7); ABSOLUTE LYMPHOCYTES 2.4 thou/uL (0.8-5.3); ABSOLUTE MONOCYTES 0.8 thou/uL (0.0-1.2); ABSOLUTE NEUTROPHILS 4.7 thou/uL (1.6-8.1); BASOPHILS 0.5 %; EOSINOPHILS 2.5 %; HEMOGLOBIN 13.6 gm/dL (14.0-18.0); MCH 33.2 pg (26.0-34.0); MCHC 33.9 g/dL (28.0-37.0); MCV 97.8 fL (80.0-100.0); MONOCYTES 9.3 %; MPV 6.9 fl. (7.2-11.1); NUCLEATED RBCS 0 /100WBC; PLATELET COUNT* 274 thou/uL (150-400); POLYS 57.7 %; RBC 4.09 mil/uL (4.50-6.00); RDW-CV 13.2 % (10.5-14.5); WBC 8.1 thou/uL (4.0-11.0)
[2017-12-13 06:32] LABS: APTT 25.3 Seconds (25.0-31.3); PROTIME 9.6 Seconds (9.20-11.50)
[2017-12-13 06:33] LABS: ANION GAP 9 mmol/L (7-16); BUN 14 mg/dL (7-18); CALCIUM 7.8 mg/dL (8.5-10.1); CHLORIDE 107 mmol/L (98-107); CO2 23 mmol/L (21-32); CREATININE 0.8 mg/dL (0.6-1.3); GLUCOSE 131 mg/dL (70-99); POTASSIUM 3.7 mmol/L (3.5-5.1); SODIUM 139 mmol/L (136-145)
[2017-12-13 06:43] LABS: ALBUMIN 2.8 g/dL (3.4-5.0); ALKALINE PHOSPHATASE 104 U/L (46-116); LIPASE 142 U/L (73-393); MAGNESIUM 1.9 mg/dL (1.8-2.4); NT-PRO BRAIN NAT PEPTIDE 88 pg/mL (<300); SGOT 19 U/L (15-37); SGPT 24 U/L (30-65); TOTAL BILIRUBIN 0.2 mg/dL (<0.1-1.0); TOTAL PROTEIN 6.2 g/dL (6.4-8.2); TROPONIN-I LEVEL <0.06 ng/mL (<0.06)
[2017-12-13 09:00] VITALS: BP 108/64
--- NOTE | 2017-12-13 10:54 | EKG ---
[place] [address] ELECTROCARDIOGRAM REPORT Name: TERESA DYE [id number] Admission: 12/13/17 Attend Phys: Discharge: 12/13/17 Date of : 64 Report #: [id number] THIS REPORT FOR: //name// [facility] ED Test Date: 2017-12-13 Test Time: 05:56:35 Pat Name: TERESA DYE Department: Room: Gender: M Manager Line: [facility] : 1960 Requested By: Isael Parker Order Number: [id number] MD: Juan Pablo Fan Measurements Intervals [place] Rate: 67 P: -15 [place]: 204 QRS: 0 QRSD: 81 T: 50 QT: 390 QTc: 412 Interpretive Statements Sinus rhythm Borderline prolonged [place] interval Low voltage, precordial leads Anteroseptal infarct, old Compared to ECG 10/22/2017 08:42:48 Myocardial infarct finding now present ST (T wave) deviation still present Electronically Signed On 12-13-2017 10:54:23 CDT by Juan Pablo Fan [email or web address] <ELECTRONICALLY SIGNED> By: Juan Pablo Fan MD, FACC 12/13/17 1054 0556 0556 Juan Pablo Fan MD, [facility] /EPI
== END 2017-12-13 09:09 | disposition home or self-care (01) ==
LOC: M.ERS 05:42
PROVIDERS: Emergency Medicine Emergency Medical Services
DX: R07.89 Other chest pain (principal); R61 Generalized hyperhidrosis; R11.10 Vomiting, unspecified; F17.210 Nicotine dependence, cigarettes, uncomplicated; Z86.718 Personal history of other venous thrombosis and embolism; Z90.49 Acquired absence of other specified parts of digestive tract; Z86.73 Personal history of transient ischemic attack (TIA), and cerebral infarction without residual deficits; Z88.5 Allergy status to narcotic agent

== ENCOUNTER 2018-02-21 05:28 | Emergency (ER) | payer MEDICARE ==
[~2018-02-21] VITALS: Ht 175.3 cm; Wt 84.4 kg
[2018-02-21] MEDS ORDERED: HYDROCODONE (05:36)
[2018-02-21 06:18] LABS: ABSOLUTE EOSINOPHILS 0.2 thou/uL (0.0-0.7); ABSOLUTE LYMPHOCYTES 2.2 thou/uL (0.8-5.3); ABSOLUTE MONOCYTES 0.7 thou/uL (0.0-1.2); ABSOLUTE NEUTROPHILS 6.2 thou/uL (1.6-8.1); BASOPHILS 0.4 %; EOSINOPHILS 1.8 %; HEMATOCRIT 42.3 % (42.0-52.0); HEMOGLOBIN 14.6 gm/dL (14.0-18.0); LYMPHOCYTES 23.5 %; MCH 33.6 pg (26.0-34.0); MCHC 34.6 g/dL (28.0-37.0); MCV 96.9 fL (80.0-100.0); MONOCYTES 7.9 %; NUCLEATED RBCS 0 /100WBC; PLATELET COUNT* 280 thou/uL (150-400); POLYS 66.4 %; RBC 4.36 mil/uL (4.50-6.00); RDW-CV 13.2 % (10.5-14.5); WBC 9.3 thou/uL (4.0-11.0)
[2018-02-21 06:28] LABS: CALCIUM 8.5 mg/dL (8.5-10.1); CREATININE 0.8 mg/dL (0.6-1.3); POTASSIUM 3.9 mmol/L (3.5-5.1)
[2018-02-21 06:41] LABS: ALBUMIN 3.1 g/dL (3.4-5.0); TOTAL BILIRUBIN 0.2 mg/dL (<0.1-1.0); TOTAL PROTEIN 6.8 g/dL (6.4-8.2)
[2018-02-21 09:26] LABS: URINE BILIRUBIN NEGATIVE (Negative); URINE BLOOD NEGATIVE (Negative); URINE CLARITY CLEAR; URINE COLOR YELLOW; URINE GLUCOSE-RANDOM TRACE (Negative); URINE KETONES NEGATIVE (Negative); URINE LEUKOCYTES-REFLEX NEGATIVE (Negative); URINE NITRITE-REFLEX NEGATIVE (Negative); URINE PROTEIN NEGATIVE (Negative); URINE SPECIFIC GRAVITY 1.015 (1.005-1.030); URINE UROBILINOGEN 0.2 E.U./dl (0.2-1.0)
[2018-02-21] MEDS ORDERED: BENTYL 20 MG TA20 M1 PO (09:32)
[2018-02-21 09:40] VITALS: BP 137/92
== END 2018-02-21 09:40 | disposition home or self-care (01) ==
LOC: M.ERS 05:28
PROVIDERS: Emergency Medicine
DX: K59.00 Constipation, unspecified (principal); F17.210 Nicotine dependence, cigarettes, uncomplicated; Z86.73 Personal history of transient ischemic attack (TIA), and cerebral infarction without residual deficits; Z85.810 Personal history of malignant neoplasm of tongue; Z86.718 Personal history of other venous thrombosis and embolism; Z90.49 Acquired absence of other specified parts of digestive tract; Z88.5 Allergy status to narcotic agent

== ENCOUNTER 2018-03-19 21:30 | Emergency (ER) | payer MEDICARE ==
[~2018-03-19] VITALS: Ht 175.3 cm; Wt 76.2 kg
[~2018-03-19 21:30] MED LIST changes: +BENTYL 20 MG TA20 M1 PO; +HYDROCODONE
[2018-03-19 22:07] LABS: ABSOLUTE EOSINOPHILS 0.2 thou/uL (0.0-0.7); ABSOLUTE LYMPHOCYTES 2.7 thou/uL (0.8-5.3); ABSOLUTE MONOCYTES 0.9 thou/uL (0.0-1.2); ABSOLUTE NEUTROPHILS 7.1 thou/uL (1.6-8.1); BASOPHILS 0.4 %; EOSINOPHILS 1.9 %; HEMATOCRIT 44.9 % (42.0-52.0); HEMOGLOBIN 15.5 gm/dL (14.0-18.0); LYMPHOCYTES 24.3 %; MCH 33.3 pg (26.0-34.0); MCHC 34.6 g/dL (28.0-37.0); MCV 96.4 fL (80.0-100.0); MONOCYTES 8.5 %; NUCLEATED RBCS 0 /100WBC; PLATELET COUNT* 327 thou/uL (150-400); POLYS 64.9 %; RBC 4.66 mil/uL (4.50-6.00); WBC 10.9 thou/uL (4.0-11.0)
[2018-03-19 22:13] LABS: ANION GAP 9 mmol/L (7-16); BUN 9 mg/dL (7-18); CALCIUM 8.6 mg/dL (8.5-10.1); CHLORIDE 101 mmol/L (98-107); CO2 24 mmol/L (21-32); CREATININE 0.8 mg/dL (0.6-1.3); GLUCOSE 130 mg/dL (70-99); POTASSIUM 3.8 mmol/L (3.5-5.1); SODIUM 134 mmol/L (136-145)
[2018-03-19 22:23] LABS: ALBUMIN 3.2 g/dL (3.4-5.0); ALKALINE PHOSPHATASE 156 U/L (46-116); LIPASE 183 U/L (73-393); NT-PRO BRAIN NAT PEPTIDE 87 pg/mL (<300); SGOT 23 U/L (15-37); SGPT 31 U/L (30-65); TOTAL BILIRUBIN 0.6 mg/dL (<0.1-1.0); TOTAL PROTEIN 7.5 g/dL (6.4-8.2); TROPONIN-I LEVEL <0.06 ng/mL (<0.06)
[2018-03-19] MEDS ORDERED: HYDROCODON-ACE1 EAC7 PO (22:58)
[2018-03-19 23:11] VITALS: BP 128/92
--- NOTE | 2018-03-20 13:56 | EKG ---
[place] [address] ELECTROCARDIOGRAM REPORT Name: TERESA DYE [id number] Admission: 03/19/18 Attend Phys: Discharge: 03/19/18 Date of : 64 Report #: [id number] THIS REPORT FOR: //name// [facility] ED Test Date: 2018-03-19 Test Time: 22:01:06 Pat Name: TERESA DYE Department: Room: Gender: M Powder Nipper: : 1960 Requested By: Teresa Miner Order Number: [id number] MD: Jadiel Angeles Measurements Intervals [place] Rate: 92 P: 39 DC: 160 QRS: 6 QRSD: 80 T: 65 QT: 345 QTc: 427 Interpretive Statements Sinus rhythm Probable left atrial enlargement Low voltage, precordial leads Minimal ST elevation, inferior leads Compared to ECG 12/13/2017 05:56:35 ST (T wave) deviation now present Myocardial infarct finding no longer present Electronically Signed On 03-20-2018 13:56:15 CDT by Jadiel Angeles [email or web address] <ELECTRONICALLY SIGNED> By: Jadiel Angeles MD, [facility] 03/20/18 1356 00 00 Jadiel Angeles MD, [facility] /EPI
== END 2018-03-19 23:12 | disposition home or self-care (01) ==
LOC: M.ERS 21:30
PROVIDERS: Emergency Medicine
DX: R07.89 Other chest pain (principal); F17.210 Nicotine dependence, cigarettes, uncomplicated; Z88.6 Allergy status to analgesic agent; Z90.49 Acquired absence of other specified parts of digestive tract; Z98.890 Other specified postprocedural states; Z86.73 Personal history of transient ischemic attack (TIA), and cerebral infarction without residual deficits; Z86.718 Personal history of other venous thrombosis and embolism

== ENCOUNTER 2018-03-22 15:38 | Emergency (ER) | payer MEDICARE ==
[~2018-03-22] VITALS: Ht 175.3 cm; Wt 76.2 kg
[2018-03-22 16:11] LABS: ABSOLUTE EOSINOPHILS 0.1 thou/uL (0.0-0.7); ABSOLUTE LYMPHOCYTES 2.1 thou/uL (0.8-5.3); ABSOLUTE MONOCYTES 0.6 thou/uL (0.0-1.2); ABSOLUTE NEUTROPHILS 5.7 thou/uL (1.6-8.1); BASOPHILS 0.6 %; EOSINOPHILS 0.7 %; HEMATOCRIT 47.6 % (42.0-52.0); HEMOGLOBIN 16.4 gm/dL (14.0-18.0); LYMPHOCYTES 25.2 %; MCH 32.9 pg (26.0-34.0); MCHC 34.5 g/dL (28.0-37.0); MCV 95.3 fL (80.0-100.0); MONOCYTES 6.7 %; MPV 6.5 fl. (7.2-11.1); NUCLEATED RBCS 0 /100WBC; PLATELET COUNT* 356 thou/uL (150-400); POLYS 66.8 %; WBC 8.5 thou/uL (4.0-11.0)
[2018-03-22 16:19] LABS: ANION GAP 7 mmol/L (7-16); BUN 14 mg/dL (7-18); CALCIUM 8.9 mg/dL (8.5-10.1); CHLORIDE 102 mmol/L (98-107); CO2 25 mmol/L (21-32); GLUCOSE 160 mg/dL (70-99); POTASSIUM 3.9 mmol/L (3.5-5.1); SODIUM 134 mmol/L (136-145)
[2018-03-22 16:26] LABS: ALBUMIN 3.2 g/dL (3.4-5.0); ALKALINE PHOSPHATASE 148 U/L (46-116); LIPASE 107 U/L (73-393); SGOT 38 U/L (15-37); SGPT 49 U/L (30-65); TOTAL BILIRUBIN 0.3 mg/dL (<0.1-1.0); TOTAL PROTEIN 7.7 g/dL (6.4-8.2); TROPONIN-I LEVEL <0.06 ng/mL (<0.06)
[2018-03-22] MEDS ORDERED: NORCO 5-325 TA1 EAC1 PO (17:37)
[2018-03-22] MEDS ORDERED: MEDROLDOSEPACK PO (17:37)
[2018-03-22] MEDS ORDERED: VENTOLIN HFA 1818 GM INH (17:37)
[2018-03-22 17:45] VITALS: BP 131/98
--- NOTE | 2018-03-23 12:47 | EKG ---
[place] [address] ELECTROCARDIOGRAM REPORT Name: TERESA DYE [id number] Admission: 03/22/18 Attend Phys: Discharge: 03/22/18 Date of : 64 Report #: [id number] THIS REPORT FOR: //name// [facility] ED Test Date: 2018-03-22 Test Time: 16:14:30 Pat Name: TERESA DYE Department: Room: Gender: M Mgmt Analyst: Anurag PAEZ : 1960 Requested By: Jostin Colin Order Number: [id number] MD: Fransisco March Measurements Intervals [place] Rate: 112 P: 61 [place]: 158 QRS: 13 QRSD: 86 T: 67 QT: 305 QTc: 417 Interpretive Statements Sinus tachycardia Low voltage, precordial leads Minimal ST elevation, inferior leads Compared to ECG 03/19/2018 22:01:06 Sinus rhythm no longer present ST (T wave) deviation still present Electronically Signed On 03-23-2018 12:46:55 CDT by Fransisco March [email or web address] <ELECTRONICALLY SIGNED> By: Bianca March MD, [facility] 03/23/18 1246 1614 1614 Bianca March MD, [facility] /EPI
== END 2018-03-22 17:47 | disposition home or self-care (01) ==
LOC: M.ERS 15:38
PROVIDERS: Nurse Practitioner Family
DX: J43.9 Emphysema, unspecified (principal); N19 Unspecified kidney failure; F17.210 Nicotine dependence, cigarettes, uncomplicated; Z88.5 Allergy status to narcotic agent; Z88.6 Allergy status to analgesic agent; Z90.49 Acquired absence of other specified parts of digestive tract; Z86.73 Personal history of transient ischemic attack (TIA), and cerebral infarction without residual deficits

== ENCOUNTER 2018-04-03 20:40 | Emergency (ER) | payer MEDICARE, MEDICAID ==
[~2018-04-03] VITALS: Ht 175.3 cm; Wt 76.2 kg
[~2018-04-03 20:40] MED LIST changes: +MEDROLDOSEPACK PO; +VENTOLIN HFA 1818 GM INH
[2018-04-03] MEDS ORDERED: TRAMADOL 50 MG50 MG PO (22:19)
[2018-04-03] MEDS ORDERED: GABAPENTIN 100100 MG PO (22:19)
[2018-04-03] MEDS ORDERED: PROAIR HFA8.5 GM INH (22:20)
[2018-04-03 22:33] VITALS: BP 124/69
--- NOTE | 2018-04-04 16:40 | EKG ---
[place] [address] ELECTROCARDIOGRAM REPORT Name: TERESA DYE [id number] Admission: 04/03/18 Attend Phys: Discharge: 04/03/18 Date of : 64 Report #: [id number] THIS REPORT FOR: //name// [facility] ED Test Date: 2018-04-03 Test Time: 20:58:21 Pat Name: TERESA DYE Department: Room: Gender: M Assistant Refinery Operator: BENITA : 1960 Requested By: Loyda Bowers Order Number: [id number] Carolina CRENSHAW: Jadiel Angeles Measurements Intervals [place] Rate: 78 P: 10 CT: 186 QRS: 6 QRSD: 74 T: 25 QT: 351 QTc: 400 Interpretive Statements Sinus rhythm Anterior infarct, old Compared to ECG 03/22/2018 16:14:30 Myocardial infarct finding now present Sinus tachycardia no longer present Electronically Signed On 04-04-2018 16:40:19 CDT by Jadiel Angeles [email or web address] <ELECTRONICALLY SIGNED> By: Jadiel Angeles MD, [facility] 04/04/18 [facility] 57 57 Jadiel Angeles MD, [facility]ACC /EPI
== END 2018-04-03 22:34 | disposition home or self-care (01) ==
LOC: M.ERS 20:40
DX: R06.00 Dyspnea, unspecified (principal); R07.89 Other chest pain; R06.02 Shortness of breath; Z90.49 Acquired absence of other specified parts of digestive tract; N19 Unspecified kidney failure; Z86.73 Personal history of transient ischemic attack (TIA), and cerebral infarction without residual deficits; I25.2 Old myocardial infarction; Z98.62 Peripheral vascular angioplasty status; Z86.718 Personal history of other venous thrombosis and embolism; Z85.818 Personal history of malignant neoplasm of other sites of lip, oral cavity, and pharynx; F17.210 Nicotine dependence, cigarettes, uncomplicated; Z88.5 Allergy status to narcotic agent; Z88.8 Allergy status to other drugs, medicaments and biological substances

== ENCOUNTER 2018-08-31 16:55 | Emergency (ER) | payer MEDICARE ==
[~2018-08-31 16:55] MED LIST changes: +GABAPENTIN 100100 MG PO; +PROAIR HFA8.5 GM INH
[2018-09-01] MEDS ORDERED: NORCO 5-325 TA1 EACH PO (09:22)
[2018-09-01] MEDS ORDERED: REGLAN 10 MG TA10 MG PO (09:22)
== END 2018-08-31 17:32 | disposition left against medical advice (07) ==
LOC: M.ERS 16:55
DX: Z53.21 Procedure and treatment not carried out due to patient leaving prior to being seen by health care provider (principal)

== ENCOUNTER 2018-09-01 07:26 | Emergency (ER) | payer MEDICARE ==
[~2018-09-01] VITALS: Ht 175.3 cm; Wt 72.6 kg
--- NOTE | ~2018-09-01 | EKG ---
[place] [address] ELECTROCARDIOGRAM REPORT Name: TERESA DYE Room: [facility].#: [id number] Admission: 09/01/18 Attend Phys: Discharge: Date of : 64 Report #: [id number] THIS REPORT FOR: //name// [facility] Test Date: 2018-09-01 Test Time: 08:01:46 Pat Name: TERESA DYE Department: Room: Gender: M Graduate Teacher Education: : 1960 Requested By: Mary Brady Order Number: [id number] MD: Measurements Intervals [place] Rate: 78 P: -38 [place]: 184 QRS: -9 QRSD: 84 T: 45 QT: 348 QTc: 397 Interpretive Statements Sinus rhythm Low voltage, precordial leads Minimal ST elevation, anterior leads No previous ECG available for comparison [email or web address] By: 08 08 Iram Walden MD /EPI
[2018-09-01 08:17] LABS: ABSOLUTE EOSINOPHILS 0.1 thou/uL (0.0-0.7); ABSOLUTE LYMPHOCYTES 1.9 thou/uL (0.8-5.3); ABSOLUTE MONOCYTES 0.8 thou/uL (0.0-1.2); BASOPHILS 0.4 %; EOSINOPHILS 1.5 %; HEMATOCRIT 41.2 % (42.0-52.0); HEMOGLOBIN 14.3 gm/dL (14.0-18.0); LYMPHOCYTES 28.3 %; MCH 33.5 pg (26.0-34.0); MCHC 34.7 g/dL (28.0-37.0); MCV 96.4 fL (80.0-100.0); MONOCYTES 11.9 %; NUCLEATED RBCS 0 /100WBC; PLATELET COUNT* 291 thou/uL (150-400); POLYS 57.9 %; RBC 4.27 mil/uL (4.50-6.00); RDW-CV 14.3 % (10.5-14.5); WBC 6.8 thou/uL (4.0-11.0)
[2018-09-01 08:29] LABS: ANION GAP 7 mmol/L (7-16); BUN 11 mg/dL (7-18); CALCIUM 8.8 mg/dL (8.5-10.1); CHLORIDE 106 mmol/L (98-107); CO2 27 mmol/L (21-32); CREATININE 0.9 mg/dL (0.6-1.3); GLUCOSE 109 mg/dL (70-99); POTASSIUM 3.7 mmol/L (3.5-5.1); SODIUM 140 mmol/L (136-145)
[2018-09-01 08:40] LABS: ALKALINE PHOSPHATASE 131 U/L (46-116); LIPASE 104 U/L (73-393); NT-PRO BRAIN NAT PEPTIDE 46 pg/mL (<300); SGOT 28 U/L (15-37); SGPT 38 U/L (30-65); TOTAL BILIRUBIN 0.2 mg/dL (<0.1-1.0); TOTAL PROTEIN 6.7 g/dL (6.4-8.2); TROPONIN-I LEVEL <0.06 ng/mL (<0.06)
[2018-09-01 08:42] LABS: PROTIME 9.8 Seconds (9.20-11.50)
[2018-09-01] MEDS ORDERED: REGLAN 10 MG TA10 MG PO (09:22)
[2018-09-01] MEDS ORDERED: NORCO 5-325 TA1 EACH PO (09:22)
[2018-09-01 09:34] VITALS: BP 137/93
== END 2018-09-01 09:35 | disposition home or self-care (01) ==
LOC: M.ERS 07:26
PROVIDERS: Personal Emergency Response Attendant
DX: R13.10 Dysphagia, unspecified (principal); Z90.49 Acquired absence of other specified parts of digestive tract; N19 Unspecified kidney failure; I25.2 Old myocardial infarction; Z98.62 Peripheral vascular angioplasty status; F17.210 Nicotine dependence, cigarettes, uncomplicated; Z88.5 Allergy status to narcotic agent; Z88.8 Allergy status to other drugs, medicaments and biological substances

== ENCOUNTER 2018-12-28 11:33 | Emergency (ER) | payer MEDICARE ==
[~2018-12-28] VITALS: Ht 175.3 cm; Wt 74.8 kg
[~2018-12-28 11:33] MED LIST changes: +NORCO 5-325 TA1 EACH PO; +REGLAN 10 MG TA10 MG PO
[2018-12-28] MEDS ORDERED: MEDROLDOSEPACK PO (12:11)
[2018-12-28] MEDS ORDERED: ZPAK PO (12:11)
[2018-12-28] MEDS ORDERED: PROAIR HFA8.5 GM INH (12:11)
[2018-12-28] MEDS ORDERED: TESSALON PERLE100 MG PO (12:34)
[2018-12-28 12:45] VITALS: BP 142/99
== END 2018-12-28 12:47 | disposition home or self-care (01) ==
LOC: M.ERS 11:33
DX: J20.9 Acute bronchitis, unspecified (principal); F17.210 Nicotine dependence, cigarettes, uncomplicated; Z88.5 Allergy status to narcotic agent; Z88.4 Allergy status to anesthetic agent; Z88.6 Allergy status to analgesic agent; Z85.850 Personal history of malignant neoplasm of thyroid; Z86.718 Personal history of other venous thrombosis and embolism; Z86.73 Personal history of transient ischemic attack (TIA), and cerebral infarction without residual deficits; Z90.49 Acquired absence of other specified parts of digestive tract

== ENCOUNTER 2019-06-13 19:14 | Emergency (ER) | payer MEDICARE ==
[~2019-06-13] VITALS: Ht 175.3 cm; Wt 72.6 kg
[~2019-06-13 19:14] MED LIST changes: +TESSALON PERLE100 MG PO
[2019-06-13] MEDS ORDERED: MORPHINE SULFAT30 M4 PO (19:24)
[2019-06-13] MEDS ORDERED: ASA81BEC PO (19:25)
[2019-06-13] MEDS ORDERED: DILAUDID (19:25)
[2019-06-13] MEDS ORDERED: LISINOPRIL2.5 MG PO (19:25)
[2019-06-13 20:04] VITALS: BP 145/87
== END 2019-06-13 20:05 | disposition home or self-care (01) ==
LOC: M.ERS 19:14
DX: G89.3 Neoplasm related pain (acute) (chronic) (principal); F17.210 Nicotine dependence, cigarettes, uncomplicated; R63.0 Anorexia; M25.552 Pain in left hip; M25.551 Pain in right hip; M54.6 Pain in thoracic spine; Z88.5 Allergy status to narcotic agent; Z86.718 Personal history of other venous thrombosis and embolism; Z90.49 Acquired absence of other specified parts of digestive tract; Z90.89 Acquired absence of other organs; Z85.038 Personal history of other malignant neoplasm of large intestine; Z85.118 Personal history of other malignant neoplasm of bronchus and lung

== ENCOUNTER 2019-07-28 03:20 | Inpatient (IN) | payer MEDICARE ==
[~2019-07-28] VITALS: Ht 175.3 cm; Wt 81.6 kg
[~2019-07-28 03:20] MED LIST changes: +ASA81BEC PO; +DILAUDID; +LISINOPRIL2.5 MG PO; +MORPHINE SULFAT30 M4 PO
[2019-07-28] MEDS ORDERED: FENTANYL1 EAC2 TOP (03:34)
[2019-07-28] MEDS ORDERED: RISPERDAL0.5 MG PO (03:35)
[2019-07-28] MEDS ORDERED: MORPHINE 00.5 MG/11 PO (03:35)
[2019-07-28] MEDS ORDERED: COLACE100 MG PO (03:36)
[2019-07-28] MEDS ORDERED: COMPAZINE10 M2 PO (03:36)
[2019-07-28 04:27] LABS: ABSOLUTE BASOPHILS 0.1 thou/uL (0.0-0.2); ABSOLUTE EOSINOPHILS 0.3 thou/uL (0.0-0.7); ABSOLUTE LYMPHOCYTES 2.3 thou/uL (0.8-5.3); ABSOLUTE NEUTROPHILS 5.8 thou/uL (1.6-8.1); BASOPHILS 1.4 %; EOSINOPHILS 2.8 %; HEMATOCRIT 38.8 % (42.0-52.0); HEMOGLOBIN 13.7 gm/dL (14.0-18.0); LYMPHOCYTES 23.9 %; MCH 33.5 pg (26.0-34.0); MCHC 35.4 g/dL (28.0-37.0); MCV 94.7 fL (80.0-100.0); MONOCYTES 10.5 %; MPV 6.7 fl. (7.2-11.1); NUCLEATED RBCS 0 /100WBC; PLATELET COUNT* 293 thou/uL (150-400); POLYS 61.4 %; RDW-CV 14.7 % (10.5-14.5); WBC 9.5 thou/uL (4.0-11.0)
[2019-07-28 04:35] LABS: INR 0.9; PROTIME 9.5 Seconds (9.20-11.50)
[2019-07-28 04:41] LABS: CALCIUM 8.6 mg/dL (8.5-10.1); CREATININE 0.9 mg/dL (0.6-1.3); POTASSIUM 4.1 mmol/L (3.5-5.1)
[2019-07-28 04:45] LABS: ALBUMIN 3.1 g/dL (3.4-5.0); TOTAL BILIRUBIN 0.1 mg/dL (<0.1-1.0); TOTAL PROTEIN 6.8 g/dL (6.4-8.2)
[2019-07-28 09:36] VITALS: BP 128/79
[2019-07-28 13:29] VITALS: BP 114/77
[2019-07-28 13:57] VITALS: BP 114/77
--- NOTE | 2019-07-28 14:18 | NUR ---
PT ORIENTED TO ROOM AND UNIT, BED LOW AND LOCKED, SIDE RAILS UPX3,CALL LIGHT IN REACH. WILL CONTINUE TO ASSESS.
--- NOTE | 2019-07-28 17:11 | EKG ---
[place] [address] ELECTROCARDIOGRAM REPORT Name: TERESA DYE Room: [address] ADM IN .R.#: [id number] Admission: 07/28/19 Attend Phys: Lavelle Orosco Discharge: Date of : 64 Report #: [id number] THIS REPORT FOR: //name// [facility] ED Test Date: 2019-07-28 Test Time: 05:48:56 Pat Name: TERESA DYE Department: Room: [facility] Gender: M Builder Operator: TIFFANIE : 1960 Requested By: Loyda Bowers Order Number: [id number] Carolina MD: Rashad Allan Measurements Intervals [place] Rate: 75 P: -7 [place]: 185 QRS: -8 QRSD: 87 T: 30 QT: 356 QTc: 398 Interpretive Statements Sinus rhythm Low voltage, precordial leads Compared to ECG 09/01/2018 08:01:46 ST (T wave) deviation no longer present Electronically Signed On 07-28-2019 17:10:34 STATION SUPERVISOR by Rashad Allan [email or web address] <ELECTRONICALLY SIGNED> By: Rashad Allan MD, [facility] 07/28/19 1710 0548 0548 Rashad Allan MD, [facility] /EPI
[2019-07-28 20:00] VITALS: BP 121/73
[2019-07-29] VITALS (7 sets, daily range): BP systolic 112–130; BP diastolic 68–78
[2019-07-29 05:23] LABS: ABSOLUTE BASOPHILS 0.1 thou/uL (0.0-0.2); ABSOLUTE EOSINOPHILS 0.3 thou/uL (0.0-0.7); ABSOLUTE MONOCYTES 0.8 thou/uL (0.0-1.2); ABSOLUTE NEUTROPHILS 4.7 thou/uL (1.6-8.1); BASOPHILS 0.8 %; EOSINOPHILS 3.6 %; HEMATOCRIT 36.1 % (42.0-52.0); HEMOGLOBIN 12.6 gm/dL (14.0-18.0); LYMPHOCYTES 25.3 %; MCH 33.2 pg (26.0-34.0); MCV 94.8 fL (80.0-100.0); MONOCYTES 10.2 %; MPV 6.7 fl. (7.2-11.1); NUCLEATED RBCS 0 /100WBC; PLATELET COUNT* 257 thou/uL (150-400); POLYS 60.1 %; RDW-CV 14.2 % (10.5-14.5); WBC 7.8 thou/uL (4.0-11.0)
--- NOTE | 2019-07-29 05:27 | NUR ---
ASSUMED CARE OF PT AFTER REPORT AT 1930. PT A&OX4. VSS. PHYSICAL ASSESSMENT COMPLETED AND CHARTED. PT ON RA. PT TRACING SR ON TELE. PT UPADLIB TO RESTROOM. PT COMPLAINED OF EPIGASTRIC/ABDOMINAL PAIN-MEDS GIVEN PER SEP. INSRUCTED ON NPO POST MIDNIGHT FOR EGD TODAY. COMMUNICATES UNDERSTANDING. CALL LIGHT WITHIN REACH.
[2019-07-29 05:49] LABS: CALCIUM 8.3 mg/dL (8.5-10.1); CREATININE 0.8 mg/dL (0.6-1.3); POTASSIUM 4.3 mmol/L (3.5-5.1)
--- NOTE | 2019-07-29 09:20 | NUR ---
ASSUMED CARE OF PATIENT THIS AM AT 0730. PATIENT IS ALERT AND ORIENTED X 4. HE C/O EPIGASTRIC PAIN AT 9 TO 10 IN PAIN SCALE. TELE SHOWS SINUS AARON. PATIENT KEPT NPO FOR EGD THIS AM. CONSENT SIGNED FOR PROCEDURE AND PATIENT TAKEN TO PACU PER W/C.
--- NOTE | 2019-07-29 12:38 | NUR ---
PT OUT OF ROOM FOR PROCEEDURE. CM TO F/U
--- NOTE | 2019-07-29 14:38 | NUR ---
Pt is A&O. Resides at home with his son. Independent. No DME. Hx of [facility], Pt working with oncologist and potentially plans to seek treatment, so will not resume hospice [place]. Hx of skilled. No hx of HH. Pt to have EGD tomorrow. Goal is home, no needs.
[2019-07-30 04:13] VITALS: BP 138/78
--- NOTE | 2019-07-30 05:46 | NUR ---
PT CARE ASSUMED AT 1930. SAT MAINTAINED IN RA. ALERT AND ORIENTED X4. PT C/O BLEEDING WHILE TRYING TO HAVE A BOWEL MOVEMENT AND BEING DIZZY, PROVIDE MADE AWARE. PT UP STANDBY. C/O NAUSEA, MEDICATION GIVEN PER EMAR. CALLLIGHT WITHIN REACG AND BED IN LOW POSITION. C/O PAIN, MEDICATION GIVEN PER EMAR. HOURLY ROUNDING DONE FOR PT SAFETY.
[2019-07-30 08:00] VITALS: BP 116/66
[2019-07-30 16:00] VITALS: BP 128/73
[2019-07-30 17:41] LABS: ABSOLUTE BASOPHILS 0.1 thou/uL (0.0-0.2); ABSOLUTE EOSINOPHILS 0.3 thou/uL (0.0-0.7); ABSOLUTE LYMPHOCYTES 1.7 thou/uL (0.8-5.3); ABSOLUTE MONOCYTES 0.7 thou/uL (0.0-1.2); ABSOLUTE NEUTROPHILS 4.6 thou/uL (1.6-8.1); BASOPHILS 0.9 %; EOSINOPHILS 4.3 %; HEMATOCRIT 37.1 % (42.0-52.0); HEMOGLOBIN 12.8 gm/dL (14.0-18.0); LYMPHOCYTES 22.6 %; MCH 32.8 pg (26.0-34.0); MCHC 34.4 g/dL (28.0-37.0); MCV 95.6 fL (80.0-100.0); MONOCYTES 9.1 %; NUCLEATED RBCS 0 /100WBC; PLATELET COUNT* 269 thou/uL (150-400); POLYS 63.1 %; RBC 3.89 mil/uL (4.50-6.00); RDW-CV 14.4 % (10.5-14.5); WBC 7.4 thou/uL (4.0-11.0)
--- NOTE | 2019-07-30 18:51 | NUR ---
PT ARRIVED TO UNIT AROUND 1800 FROM TELE. C/O ABDOMINAL PAIN, UP AD JOVAN WALKING AROUND UNIT. ABLE TO MAKE NEEDS KNOWN. PLEASENT WITH STAFF. WILL CONTINUE TO MONITOR.
[2019-07-30 19:30] VITALS: BP 120/82
--- NOTE | 2019-07-30 19:35 | NUR ---
VSS, MED SURG STATUS, A&OX4, UP AD JOVAN, HOURLY ROUNDING PERFORMED, POSSESSIONS AND CALL LIGHT WITHIN REACH. TRANSFERRED PATIENT TO ROOM 311, REPORT GIVEN TO RN DAVID, PATIENT TAKEN TO THIRD FLOOR BY WHEELCHAIR
[2019-07-31 03:54] LABS: ABSOLUTE BASOPHILS 0.1 thou/uL (0.0-0.2); ABSOLUTE EOSINOPHILS 0.4 thou/uL (0.0-0.7); ABSOLUTE LYMPHOCYTES 1.7 thou/uL (0.8-5.3); ABSOLUTE MONOCYTES 0.8 thou/uL (0.0-1.2); ABSOLUTE NEUTROPHILS 4.1 thou/uL (1.6-8.1); BASOPHILS 0.9 %; EOSINOPHILS 5.2 %; HEMATOCRIT 34.6 % (42.0-52.0); LYMPHOCYTES 24.3 %; MCH 33.2 pg (26.0-34.0); MCHC 34.8 g/dL (28.0-37.0); MCV 95.3 fL (80.0-100.0); MONOCYTES 10.8 %; NUCLEATED RBCS 0 /100WBC; PLATELET COUNT* 230 thou/uL (150-400); POLYS 58.8 %; RBC 3.63 mil/uL (4.50-6.00); RDW-CV 14.3 % (10.5-14.5)
[2019-07-31 04:30] LABS: CALCIUM 8.2 mg/dL (8.5-10.1); CREATININE 0.9 mg/dL (0.6-1.3); POTASSIUM 4.2 mmol/L (3.5-5.1)
--- NOTE | 2019-07-31 05:11 | NUR ---
PT ALERT AND ORIENTED. VERY PLEASANT. UP AD JOVAN. MEDS GIVEN PER EMAR. PAIN MEDS GIVEN CONSISTENTLY THROUGH SHIFT. PT SLEPT VERY LITTLE THIS SHIFT. SAYS ITS HIS NEW NORMAL SINCE JANUARY LAST YEAR. MELITA DAILEY SL. POSSIBLE DC TODAY. CALL LIGHT WITHIN REACH. HOURLY ROUNDINGS MADE. WILL CONTINUE TO MONITOR.
[2019-07-31 07:50] VITALS: BP 160/90
--- NOTE | 2019-07-31 12:55 | CON ---
[address] [address] CONSULTATION Name: TERESA DYE Room: [address] IN M.R.#: [id number] Admission: 07/28/19 Attend Phys: Lavelle Orosco Discharge: Date of : 64 Report #: [id number] THIS REPORT FOR: //name// CC: Mona Ward DICTATED BY: Heaven Galdamez [facility] DATE OF SERVICE: 07/28/2019 Please note at the time of this dictation, the patient was seen and physically examined by myself. REASON FOR CONSULTATION: Melanotic stool. HISTORY OF PRESENT ILLNESS: This is a 59-year-old male who states that yesterday evening, he had 2 very black semi-loose stools and then he awoke again early this morning with similar finding, prompting him to come in to be further evaluated. The patient states prior to all this, he was having some hard stools, but that is likely due to his pain medication that he takes regarding his lung cancer with mets to his bone. The patient did undergo an EGD by Dr. Batres back in 06/02/2019 that showed he had long segment Figueroa's, C8 through M8. He also had a colonoscopy done in 2014 that just showed diverticular disease. The patient was to be maintained on his PPI. However, in looking at his medication list upon presenting, he has not been taking anything for acid reflux. He states he is having difficulty swallowing and also painful swallowing. He has some epigastric pain and ongoing issues with reflux as well. The patient has a longstanding history of not being very compliant with his medications in the past as well. ALLERGIES: CODEINE, TRAMADOL AND CYCLOBENZAPRINE. MEDICATIONS: From home include aspirin, fentanyl, Risperdal, Colace, Compazine, and morphine. PAST MEDICAL HISTORY: He has had throat cancer, lung cancer, now with mets to his bone mainly in the pelvis and LS, history of hepatitis, and pancreatitis. PAST SURGICAL HISTORY: Lumbar fusion, cholecystectomy and appendectomy. FAMILY HISTORY: Noncontributory. SOCIAL HISTORY: Continues to smoke. Denies any alcohol or illegal drug use. REVIEW OF SYSTEMS: Twelve-point review of [place] [address] CONSULTATION Name: TERESA DYE Room: [address]#: [id number] Admission: 07/28/19 Attend Phys: Lavelle Orosco Discharge: Date of : 64 Report #: [id number] except what is mentioned in the HPI. PHYSICAL EXAMINATION: VITAL SIGNS: Temperature 36.8, pulse 77, respirations 13, blood pressure 128/78. HEART: Regular rate and rhythm. LUNGS: Diminished. ABDOMEN: Soft, positive bowel sounds in all 4 quadrants with some tenderness noted in the epigastric area. LABORATORY DATA: Hemoglobin 13.7, white count is 9.5, platelets 293. PT is 9.5, INR 0.9, BUN is 15, creatinine 0.9 with a GFR of 87, total bilirubin 0.1, alkaline phosphatase 127, ALT 40, AST is 22. CT shows he has mets to his pelvis and LS area. IMPRESSION: 1. Melanotic stool. 2. Gastroesophageal reflux disease. 3. Dysphagia. 4. Odynophagia. 5. Epigastric pain. 6. Lung cancer with bone mets. PLAN: 1. EGD tomorrow with Dr. Batres timing to be determined. 2. Monitor his hemoglobin. 3. Protonix IV b.i.d. 4. Further recommendations to be made once Dr. Batres sees the patient later today. Thank you for allowing us to participate in this patient's care. Please do not hesitate to call with any questions in regard to this consult. <ELECTRONICALLY SIGNED> By: Gilda Batres MD 07/31/19 1255 1208 2332Gilda Batres MD /nt
--- NOTE | 2019-07-31 13:08 | PATH ---
[address] [address] PATHOLOGY RPT PROCEDURE Name: TERESA GRISSOM Room: [address] IN M.R.#: [id number] Admission: 07/28/19 Date of : 64 Discharge: Report #: [id number] Path Case #: [id number] [facility] Accession Number: [id number] . 01 Material submitted: . PART A: esophagus - ESOPHAGUS 31CM HX OF BARRETTS R/O DYSPLASIA PART B: esophagus - ESOPHAGUS 33CM HX OF BARRETTS R/O DYSPLASIA PART C: esophagus - ESOPHAGUS 35CM HX OF BARRETTS R/O DYSPLASIA . 01 Clinical history: . History of Figueroa's, R/O dysplasia, history of cancer . 02 Diagnosis: A. Esophagus 31 cm: - Benign esophageal and Figueroa's types mucosa with moderate chronic and acute inflammation typical of reflux, negative for granulomas and dysplasia. . B. Esophagus 33 cm: - Benign gastric/columnar and Figueroa's types mucosa with moderate non-specific chronic and acute inflammation, negative for granulomas and dysplasia. . C. Esophagus 35 cm: - Benign gastric/columnar type mucosa with mild non-specific chronic inflammation, negative for goblet cells/diagnostic Figueroa's metaplasia, granulomas and dysplasia. (TRAE/db; 07/31/2019) LBQ 07/31/2019 1025 Local . 02 Electronically signed: . Drew Gerber MD, Pathologist NPI- [id number] . 01 Gross description: . A. The specimen is received in formalin, labeled "Teresa Grissom, esophagus 31 cm, history of Figueroa's, R/O dysplasia". Received are four segments of pale prado soft tissue ranging in size from 0.2 to 0.4 cm in maximum dimensions. The specimen is submitted entirely in cassette A1. . B. The specimen is received in formalin, labeled "Teresa Grissom, esophagus 33 cm, history of Figureoa's, R/O dysplasia". Received are three segments of pale prado soft tissue ranging in size from 0.2 to 0.4 cm in maximum dimensions. The specimen is submitted entirely in cassette B1. . C. The specimen is received in formalin, labeled "Teresa Grissom, esophagus 35 cm, history of Figueroa's, R/O dysplasia". Received are three segments of pale prado soft tissue ranging in size from 0.2 to 0.3 [place] [address] PATHOLOGY RPT PROCEDURE Name: TERESA GRISSOM Room: [address] IN ..#: [id number] Admission: 07/28/19 Date of : 64 Discharge: Report #: [id number] Path Case #: [id number] maximum dimensions. The specimen is submitted entirely in cassette C1. (CAA; 07/30/2019) QAC/QAC 07/30/2019 1104 Local . 02 Pathologist provided ICD-10: K20.9 . 02 CPT . 745254, 832092, 110159 Specimen Comment: A courtesy copy of this report has been sent to [phone] Specimen Comment: [phone], Specimen Comment: Report sent to ,DR ASHRAF / DR ALLEN Performed at: 01 [facility] [address] [place] [address], [place] [id number] MD Nic Espinoza MD Phone: [phone] Performed at: 02 [facility] [address], [place], [place] [id number] MD Drew Gerber MD Phone: [phone]
[2019-07-31] MEDS ORDERED: PROTONIX40 M1 PO ×2 (14:29)
[2019-07-31] MEDS ORDERED: SENOKOT-S TABL1 EACH PO ×2 (14:29)
[2019-07-31 14:39] VITALS: BP 160/90
--- NOTE | 2019-07-31 15:52 | NUR ---
PT A&OX4 VSS. UP AD JOVAN, GAIT STEADY. PT WALKS THROUGHOUT UNIT INDEPENDENTLY. ADMINSTERED PO PAIN MEDICATION SCHEDULED. PT REQUESTED PRN IV MORPHINE Q3H ORDERED. PT DENIES SOA AT THIS TIME. PT PREPARED TO DC HOME. PT HAS HAD CONTACT WITH HIS HOSPICE PROVIDERS FOR CONTINUED SERVICES. PT IV DC FROM [facility], NO REDNESS/SWELLING AT SITE. PT PROVIDED TAXI VOUCHER FOR TRANSPORTATION HOME. PT LEFT UNIT WITH ALL PERSONAL BELONGINGS, ESCORTED FROM UNIT BY NURSING STAFF.
--- NOTE | 2019-08-04 17:51 | CON ---
[address] [address] CONSULTATION Name: TERESA DYE Room: [address] IN M.R.#: [id number] Admission: 07/28/19 Attend Phys: Lavelle Orosco Discharge: 07/31/19 Date of : 64 Report #: [id number] THIS REPORT FOR: //name// CC: Mona Ward DATE OF SERVICE: 07/29/2019 DIAGNOSIS: Metastatic non-small cell lung cancer. SUBJECTIVE: This is a 59-year-old male who has been treated previously with immunotherapy as a single agent pembrolizumab, he was diagnosed with a stage 4 adenocarcinoma. The patient had a followup CT scan, which showed a partial response. Since that time, the patient decided to go on hospice and last time he was evaluated at [place], he was discharged on home hospice. However, he revoked the hospice status and he came into the hospital because of lower GI bleed. The patient reported that since last time he was seen, he gained a few pounds. He denies any cough, shortness of breath. He denies any bone pain. His hemoglobin upon evaluation yesterday was 13.7. He is in the process of having EGD. REVIEW OF SYSTEMS: All systems were reviewed. It was negative except the above. PAST MEDICAL HISTORY: Metastatic non-small cell lung cancer, treated with 4 cycles of immunotherapy as a single agent, disease status was partial response; his prior history of hepatitis, pancreatitis. MEDICATIONS: Per admission list. PAST SURGICAL HISTORY: Lumbar fusion, cholecystectomy, appendectomy. SOCIAL HISTORY: He is an active smoker for many years. He denies any alcohol or drug abuse. ALLERGIES: CODEINE, TRAMADOL, CYCLOBENZAPRINE. FAMILY HISTORY: Noncontributory. PHYSICAL EXAMINATION: VITAL SIGNS: Today, temperature 36.7, pulse 57, respirations 16, blood pressure is 116/74, SpO2 was 98% on room air. GENERAL: The patient was lying in bed. He was not in acute distress. LUNGS: Clear to auscultations bilaterally, decreased breathing sounds. No wheezing or crackles. ABDOMEN: Soft, nontender, nondistended, [place] [address] CONSULTATION Name: TERESA DYE Room: [address]#: [id number] Admission: 07/28/19 Attend Phys: Lavelle Orosco Discharge: 07/31/19 Date of : 64 Report #: [id number] EXTREMITIES: No edema, no cyanosis, no clubbing. LABORATORY DATA: Today, WBC 7.8, hemoglobin 12.7, platelets 257. Sodium is 140, potassium is 4.0, BUN 12, creatinine 0.8, calcium is 8.3, bilirubin 0.1, AST 22, ALT is 40, alk phos is 127. IMAGING: A CT abdomen showed no acute abnormalities. He has a lytic destructive lesions at L4 suggesting of the pathological fracture. ASSESSMENT AND PLAN: A 59-year-old male who has been previously diagnosed with metastatic non-small cell lung cancer, received a short course of immunotherapy. After that, his CT scan showed a partial response. The patient decided to go on hospice. Even though his performance status was acceptable and he had a good response, he tolerated treatment very well. At this point, the patient was admitted because of gastrointestinal bleed. We will follow up on his findings. The patient told me today that he would like to continue followup and treatment. In the preparation for that, I would like to have followup CT scan of the chest once the patient had a GI workup. Follow up in the [facility] for review of his CT scan. <ELECTRONICALLY SIGNED> By: Codie Sorto MD 08/04/19 1751 1128 1312Codie Sorto MD /nt
== END 2019-07-31 15:45 | disposition hospice, home (50) | DRG 377 ==
LOC: M.ERS 03:20 → M.TBA-ER 05:22 → M.3W 05:22 → M.TBA-ER 09:54 → M.2W 13:45 → M.3W 07-30 17:52
PROVIDERS: Emergency Medicine; Internal Medicine; ADMIT Internal Medicine
PROC: 0DB38ZX Excision of Lower Esophagus, Via Natural or Artificial Opening Endoscopic, Diagnostic (ICD-10-PCS; principal; 2019-07-29)
PROC: 0D758ZZ Dilation of Esophagus, Via Natural or Artificial Opening Endoscopic (ICD-10-PCS; principal; 2019-07-29)
DX: K92.2 Gastrointestinal hemorrhage, unspecified (principal); E43 Unspecified severe protein-calorie malnutrition; F11.20 Opioid dependence, uncomplicated; C79.51 Secondary malignant neoplasm of bone; C34.91 Malignant neoplasm of unspecified part of right bronchus or lung; F32.9 Major depressive disorder, single episode, unspecified; F41.9 Anxiety disorder, unspecified; I10 Essential (primary) hypertension; K21.9 Gastro-esophageal reflux disease without esophagitis; F17.210 Nicotine dependence, cigarettes, uncomplicated; Z66 Do not resuscitate; R13.10 Dysphagia, unspecified; K59.00 Constipation, unspecified; G89.3 Neoplasm related pain (acute) (chronic); K22.70 Barrett's esophagus without dysplasia; K44.9 Diaphragmatic hernia without obstruction or gangrene; K22.8 Other specified diseases of esophagus; K75.9 Inflammatory liver disease, unspecified; Z88.6 Allergy status to analgesic agent; Z88.8 Allergy status to other drugs, medicaments and biological substances; Z79.82 Long term (current) use of aspirin; Z79.899 Other long term (current) drug therapy; Z82.49 Family history of ischemic heart disease and other diseases of the circulatory system; Z68.26 Body mass index [BMI] 26.0-26.9, adult; Z85.09 Personal history of malignant neoplasm of other digestive organs; Z90.49 Acquired absence of other specified parts of digestive tract; Z92.25 Personal history of immunosuppression therapy

== ENCOUNTER 2019-07-31 16:47 | Emergency (ER) | payer MEDICARE ==
[~2019-07-31] VITALS: Ht 175.3 cm; Wt 80.3 kg
[~2019-07-31 16:47] MED LIST changes: +COMPAZINE10 M2 PO; +FENTANYL1 EAC2 TOP; +MORPHINE 00.5 MG/11 PO; +RISPERDAL0.5 MG PO; +SENOKOT-S TABL1 EACH PO
[2019-07-31 17:41] LABS: ABSOLUTE BASOPHILS 0.1 thou/uL (0.0-0.2); ABSOLUTE EOSINOPHILS 0.3 thou/uL (0.0-0.7); ABSOLUTE LYMPHOCYTES 1.6 thou/uL (0.8-5.3); ABSOLUTE MONOCYTES 0.7 thou/uL (0.0-1.2); ABSOLUTE NEUTROPHILS 4.7 thou/uL (1.6-8.1); BASOPHILS 0.7 %; HEMATOCRIT 39.9 % (42.0-52.0); HEMOGLOBIN 13.9 gm/dL (14.0-18.0); LYMPHOCYTES 21.8 %; MCH 33.2 pg (26.0-34.0); MCHC 34.9 g/dL (28.0-37.0); MCV 95.2 fL (80.0-100.0); MONOCYTES 9.7 %; MPV 6.8 fl. (7.2-11.1); NUCLEATED RBCS 0 /100WBC; PLATELET COUNT* 273 thou/uL (150-400); POLYS 63.8 %; RBC 4.19 mil/uL (4.50-6.00); RDW-CV 13.9 % (10.5-14.5); WBC 7.4 thou/uL (4.0-11.0)
[2019-07-31 17:50] LABS: CALCIUM 8.9 mg/dL (8.5-10.1)
[2019-07-31 17:54] LABS: ALBUMIN 3.6 g/dL (3.4-5.0); TOTAL BILIRUBIN 0.2 mg/dL (<0.1-1.0); TOTAL PROTEIN 7.8 g/dL (6.4-8.2)
[2019-07-31 18:41] LABS: URINE BILIRUBIN NEGATIVE (Negative); URINE BLOOD TRACE (Negative); URINE CLARITY CLEAR; URINE COLOR YELLOW; URINE GLUCOSE-RANDOM NEGATIVE (Negative); URINE KETONES NEGATIVE (Negative); URINE LEUKOCYTES-REFLEX NEGATIVE (Negative); URINE NITRITE-REFLEX NEGATIVE (Negative); URINE PROTEIN NEGATIVE (Negative); URINE UROBILINOGEN 0.2 E.U./dl (0.2-1.0)
[2019-07-31 22:01] VITALS: BP 170/105
--- NOTE | 2019-08-01 12:59 | EKG ---
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: [facility] : 1960 Requested By: Nima Rodrigues Order Number: [id number] MD: Jadiel Angeles Measurements Intervals [place] Rate: 73 P: 18 [place]: 188 QRS: -3 QRSD: 95 T: 44 QT: 364 QTc: 401 Interpretive Statements Sinus rhythm Low voltage, precordial leads Minimal ST elevation, inferior leads Compared to ECG 07/28/2019 05:48:56 ST (T wave) deviation now present Electronically Signed On 08-01-2019 12:59:04 HYDROELECTRIC STATION OPERATOR by Jadiel Angeles [email or web address] <ELECTRONICALLY SIGNED> By: Jadiel Angeles MD, [facility] 08/01/19 1259 1744 174 Jadiel Angeles MD, FAC /EPI
== END 2019-07-31 22:03 | disposition home or self-care (01) ==
LOC: M.ERS 16:47
PROVIDERS: Emergency Medicine
DX: K62.5 Hemorrhage of anus and rectum (principal); F17.210 Nicotine dependence, cigarettes, uncomplicated; Z90.49 Acquired absence of other specified parts of digestive tract; Z85.118 Personal history of other malignant neoplasm of bronchus and lung; Z85.830 Personal history of malignant neoplasm of bone; Z85.01 Personal history of malignant neoplasm of esophagus; Z88.5 Allergy status to narcotic agent; Z88.8 Allergy status to other drugs, medicaments and biological substances

== ENCOUNTER 2019-08-06 19:16 | Inpatient (IN) | payer OTHER ==
[~2019-08-06] VITALS: Ht 175.3 cm; Wt 81.2 kg
[2019-08-06 19:29] VITALS: BP 138/84
[2019-08-06 20:52] LABS: ABSOLUTE EOSINOPHILS 0.4 thou/uL (0.0-0.7); ABSOLUTE LYMPHOCYTES 1.9 thou/uL (0.8-5.3); ABSOLUTE MONOCYTES 0.7 thou/uL (0.0-1.2); ABSOLUTE NEUTROPHILS 3.8 thou/uL (1.6-8.1); BASOPHILS 0.7 %; EOSINOPHILS 5.4 %; HEMATOCRIT 37.4 % (42.0-52.0); LYMPHOCYTES 28.4 %; MCH 33.1 pg (26.0-34.0); MCHC 34.6 g/dL (28.0-37.0); MCV 95.5 fL (80.0-100.0); MONOCYTES 9.8 %; NUCLEATED RBCS 0 /100WBC; PLATELET COUNT* 229 thou/uL (150-400); POLYS 55.7 %; RBC 3.92 mil/uL (4.50-6.00); RDW-CV 14.5 % (10.5-14.5); WBC 6.8 thou/uL (4.0-11.0)
[2019-08-06 21:03] LABS: CALCIUM 8.8 mg/dL (8.5-10.1); CREATININE 0.8 mg/dL (0.6-1.3); POTASSIUM 3.8 mmol/L (3.5-5.1)
[2019-08-06 21:05] LABS: APTT 23.8 Seconds (25.0-31.3); INR 0.9; PROTIME 9.6 Seconds (9.20-11.50)
[2019-08-06 21:13] LABS: ALBUMIN 3.1 g/dL (3.4-5.0); TOTAL BILIRUBIN 0.1 mg/dL (<0.1-1.0); TOTAL PROTEIN 6.9 g/dL (6.4-8.2)
[2019-08-06 23:20] LABS: URINE BILIRUBIN NEGATIVE (Negative); URINE BLOOD NEGATIVE (Negative); URINE CLARITY CLEAR; URINE COLOR YELLOW; URINE GLUCOSE-RANDOM NEGATIVE (Negative); URINE KETONES NEGATIVE (Negative); URINE LEUKOCYTES-REFLEX NEGATIVE (Negative); URINE NITRITE-REFLEX NEGATIVE (Negative); URINE PROTEIN NEGATIVE (Negative); URINE UROBILINOGEN 0.2 E.U./dl (0.2-1.0)
[2019-08-06 23:51] VITALS: BP 125/73
[2019-08-07 00:01] VITALS: BP 117/67
--- NOTE | 2019-08-07 05:45 | NUR ---
PT SLEPT WELL AFTER ADMISSION COMPLETE. PT USES CALL LIGHT APPROPRIATELY FOR ASSISTANCE TO THE BATHROOM. PT VERY UNSTEADY ON HIS FEET; A WALKER WILL BE PROVIDED. PT REQUESTED PAIN MEDICATION X1 FOR GENERALIZED PAIN. HYDROCODONE 1 TABLET PROVIDED. PT SLEPT AFTERWARDS. PT ORIENTED TO ROOM/POLIIES AND VERBALIZES UNDERSTANDING. FREQUENLY USED ITEMS AND CALL LIGHT WITHIN REACH. SIDERAILS UPX2 AND BED ALARM ON. WILL CONTINUE TO MONITOR.
[2019-08-07 08:05] VITALS: BP 119/66
--- NOTE | 2019-08-07 09:24 | EKG ---
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: [place] : 1960 Requested By: Makayla Oliver Order Number: [id number] MD: Juan Pablo Fan Measurements Intervals [place] Rate: 68 P: 6 MT: 184 QRS: 0 QRSD: 92 T: 27 QT: 385 QTc: 410 Interpretive Statements Sinus rhythm Low voltage, precordial leads Compared to ECG 07/31/2019 17:44:07 no change Electronically Signed On 08-07-2019 9:23:23 BIOLOGY DEPARTMENT CHAIR by Juan Pablo Fan [email or web address] <ELECTRONICALLY SIGNED> By: Juan Pablo Fan MD, [facility] 08/07/19922 05 05 Juan Pablo Fan MD, [facility] /EPI
[2019-08-07 14:27] LABS: AMP/METHAMP POSITIVE (Negative); BARBITURATES Negative (Negative); BENZODIAZEPINES Negative (Negative); COCAINE Negative (Negative); METHADONE Negative (Negative); OPIATES POSITIVE (Negative); PCP Negative (Negative); THC Negative (Negative)
--- NOTE | 2019-08-07 16:10 | NUR ---
I have reviewed the documentation by SHOBHA MARINO from 08/07/19 to 08/07/19 and I concur with it. JESSICA ALBRECHT
[2019-08-07 17:02] VITALS: BP 119/73
--- NOTE | 2019-08-07 18:11 | NUR ---
PT ADMITTED TO FLOOR FROM ER ON NOC SHIFT. PT 96% ON ROOM AIR, NASAL CANNULA IN ROOM NEEDED. ONCOLOGY CONTACTED. RECORDS ON PT CHART. PT REFUSES TO USE URINAL, STATING HIS HANDS SHAKE TOO BADLY. PT UP SBA W/WALKER TO BEDSIDE COMMODE. PT REMAINS CONTINENT OF B/B. FLUIDS RUNNING AT 100ML/HOUR. PT RESTS IN ROOM WITH LIGHT OFF, CALL LIGHT IN REACH. FENTANYL PATCH PLACED TO L SHOULDER TO ADDRESS C/O DISCOMFORT. PRN HYDRCODONE ADMINISTERED ORDERED. PT HANDS ARE OBDSEREVED TO BE STEADY AT THIS TIME. PT STATES PAIN MEDICATION IS "NOT CUTTING IT" AND ASKS WHEN DOCTOR WILL BE COMING BACK. PT HAS EPISODE SHORTLY AFTER MOST RECENT DOSE OF PO PAIN MEDICATION, PT REFUSES TO USE BEDSIDE COMMODE AND AMBULATES TO RESTROOM WITHOUT DIFFICULTY. PT HAD PREVIOUSLY C/O WEAKNESS AND DISPLAYED UNSTEADY GAIT. PT YELLS AND SWEARS AT PCT. PT CALLS PCT A "BITCH" AND STATES HE WILL "JUST GO HOME". IV REMOVED FROM RFA BY [facility] NURSE PRIOR TO PT LEAVING UNIT. PT LEAVES UNIT IN WC W/PT SON RIDE. AMA PAPERWORK SIGNED AND ON PT CHART.
== END 2019-08-07 18:10 | disposition left against medical advice (07) | DRG 92 ==
LOC: M.ERS 19:16 → M.TBA-ER 22:13 → M.3W 08-07 01:17
PROVIDERS: Internal Medicine; Physician Assistant; ADMIT Internal Medicine
DX: G25.2 Other specified forms of tremor (principal); C34.90 Malignant neoplasm of unspecified part of unspecified bronchus or lung; C79.51 Secondary malignant neoplasm of bone; F17.210 Nicotine dependence, cigarettes, uncomplicated; G89.29 Other chronic pain; Z53.29 Procedure and treatment not carried out because of patient's decision for other reasons; Z88.8 Allergy status to other drugs, medicaments and biological substances; Z79.899 Other long term (current) drug therapy; Z98.1 Arthrodesis status; Z90.89 Acquired absence of other organs; Z90.49 Acquired absence of other specified parts of digestive tract; Z82.49 Family history of ischemic heart disease and other diseases of the circulatory system; Z85.89 Personal history of malignant neoplasm of other organs and systems

== ENCOUNTER 2019-08-14 06:50 | Emergency (ER) | payer OTHER ==
[~2019-08-14] VITALS: Ht 175.3 cm; Wt 81.2 kg
--- NOTE | ~2019-08-14 | EKG ---
[place] [address] ELECTROCARDIOGRAM REPORT Name: TERESA DYE ROBBY Room: [facility]#: [id number] Admission: 08/14/19 Attend Phys: Discharge: 08/14/19 Date of : 64 Date of Service: 08/14/19 1028 Report #: [id number] THIS REPORT FOR: cc: FAM - No family physician/PCP FAM - No family physician/PCP Iram Walden MD ~ THIS REPORT FOR: //name// [facility] ED Test Date: 2019-08-14 Test Time: 10:28:13 Pat Name: TERESA DYE Department: Room: Gender: M Masticator: VERONICA : 1960 Requested By: Isael Parker Order Number: [id number] MD: Measurements Intervals [place] Rate: 66 P: -3 [place]: 205 QRS: 21 QRSD: 86 T: 43 QT: 392 QTc: 411 Interpretive Statements Sinus rhythm Borderline prolonged [place] interval Low voltage, precordial leads Minimal ST elevation, anterior leads Compared to ECG 08/14/2019 07:07:29 No significant changes [email or web address] By: 1028 102 Epiphany Epiphany, /CARLENE
--- NOTE | ~2019-08-14 | EKG ---
[place] [address] ELECTROCARDIOGRAM REPORT Name: TERESA DYE [id number] Admission: 08/14/19 Attend Phys: Discharge: Date of : 64 Report #: [id number] THIS REPORT FOR: //name// [facility] ED Test Date: 2019-08-14 Test Time: 07:07:29 Pat Name: TERESA DYE Department: Room: Gender: M Tool And Die Manager: MERVAT : 1960 Requested By: Isael Parker Order Number: [id number] MD: Measurements Intervals [place] Rate: 71 P: -6 [place]: 200 QRS: -5 QRSD: 86 T: 30 QT: 381 QTc: 414 Interpretive Statements Sinus rhythm Low voltage, precordial leads Minimal ST elevation, anterior leads Compared to ECG 08/06/2019 21:06:30 ST (T wave) deviation now present [email or web address] By: 07 0707 Epiphany EpiphanyMD /EPI
[2019-08-14 07:27] LABS: ABSOLUTE BASOPHILS 0.1 thou/uL (0.0-0.2); ABSOLUTE EOSINOPHILS 0.3 thou/uL (0.0-0.7); ABSOLUTE LYMPHOCYTES 1.9 thou/uL (0.8-5.3); ABSOLUTE MONOCYTES 0.9 thou/uL (0.0-1.2); ABSOLUTE NEUTROPHILS 4.5 thou/uL (1.6-8.1); BASOPHILS 0.8 %; EOSINOPHILS 3.8 %; HEMATOCRIT 34.2 % (42.0-52.0); HEMOGLOBIN 11.9 gm/dL (14.0-18.0); LYMPHOCYTES 25.1 %; MCH 33.7 pg (26.0-34.0); MCHC 34.7 g/dL (28.0-37.0); MONOCYTES 11.8 %; NUCLEATED RBCS 0 /100WBC; PLATELET COUNT* 241 thou/uL (150-400); POLYS 58.5 %; RBC 3.52 mil/uL (4.50-6.00); RDW-CV 14.3 % (10.5-14.5); WBC 7.7 thou/uL (4.0-11.0)
[2019-08-14 07:39] LABS: CALCIUM 8.2 mg/dL (8.5-10.1); CREATININE 0.8 mg/dL (0.6-1.3); POTASSIUM 3.7 mmol/L (3.5-5.1)
[2019-08-14 07:46] LABS: INR 0.9; PROTIME 9.6 Seconds (9.20-11.50)
[2019-08-14 07:52] LABS: MAGNESIUM 2.2 mg/dL (1.8-2.4); TOTAL BILIRUBIN 0.2 mg/dL (<0.1-1.0); TOTAL PROTEIN 6.5 g/dL (6.4-8.2)
[2019-08-14 10:48] VITALS: BP 120/81
== END 2019-08-14 10:49 | disposition home or self-care (01) ==
LOC: M.ERS 06:50
PROVIDERS: Emergency Medicine Emergency Medical Services
DX: R07.89 Other chest pain (principal); F17.210 Nicotine dependence, cigarettes, uncomplicated; Z85.21 Personal history of malignant neoplasm of larynx; Z85.118 Personal history of other malignant neoplasm of bronchus and lung; Z85.830 Personal history of malignant neoplasm of bone; Z90.49 Acquired absence of other specified parts of digestive tract; Z88.5 Allergy status to narcotic agent; Z88.8 Allergy status to other drugs, medicaments and biological substances

== ENCOUNTER 2019-09-09 23:17 | Emergency (ER) | payer MEDICARE ==
[~2019-09-09] VITALS: Ht 175.3 cm; Wt 76.2 kg
[2019-09-10 00:01] LABS: ABSOLUTE BASOPHILS 0.1 thou/uL (0.0-0.2); ABSOLUTE EOSINOPHILS 0.5 thou/uL (0.0-0.7); ABSOLUTE LYMPHOCYTES 1.7 thou/uL (0.8-5.3); ABSOLUTE MONOCYTES 0.7 thou/uL (0.0-1.2); ABSOLUTE NEUTROPHILS 4.6 thou/uL (1.6-8.1); BASOPHILS 0.8 %; EOSINOPHILS 6.3 %; HEMOGLOBIN 13.6 gm/dL (14.0-18.0); LYMPHOCYTES 22.4 %; MCH 33.2 pg (26.0-34.0); MCHC 34.9 g/dL (28.0-37.0); MCV 95.1 fL (80.0-100.0); MONOCYTES 8.9 %; MPV 6.8 fl. (7.2-11.1); NUCLEATED RBCS 0 /100WBC; PLATELET COUNT* 302 thou/uL (150-400); POLYS 61.6 %; RDW-CV 13.4 % (10.5-14.5); WBC 7.4 thou/uL (4.0-11.0)
[2019-09-10 00:24] LABS: CALCIUM 9.1 mg/dL (8.5-10.1); CREATININE 0.8 mg/dL (0.6-1.3); POTASSIUM 3.9 mmol/L (3.5-5.1)
[2019-09-10 00:29] LABS: ALBUMIN 3.1 g/dL (3.4-5.0); TOTAL BILIRUBIN 0.2 mg/dL (<0.1-1.0); TOTAL PROTEIN 7.1 g/dL (6.4-8.2)
[2019-09-10 02:52] VITALS: BP 112/81
== END 2019-09-10 02:52 | disposition home or self-care (01) ==
LOC: M.ERS 23:17
PROVIDERS: Emergency Medicine
DX: M89.8X6 Other specified disorders of bone, lower leg (principal); R10.84 Generalized abdominal pain; M79.662 Pain in left lower leg; F17.210 Nicotine dependence, cigarettes, uncomplicated; Z85.830 Personal history of malignant neoplasm of bone; Z85.118 Personal history of other malignant neoplasm of bronchus and lung; Z85.89 Personal history of malignant neoplasm of other organs and systems; Z90.49 Acquired absence of other specified parts of digestive tract; Z88.5 Allergy status to narcotic agent; Z88.6 Allergy status to analgesic agent

== ENCOUNTER 2019-10-06 18:29 | Emergency (ER) | payer MEDICARE ==
[~2019-10-06] VITALS: Ht 175.3 cm; Wt 73.0 kg
[2019-10-06] MEDS ORDERED: METHADONE HCL 110 M1 PO (18:42)
[2019-10-06] MEDS ORDERED: LORAZEPAM 2MG TA2 M1 PO (18:42)
[2019-10-06 19:46] LABS: INFLUENZA A ANTIGEN Negative (Negative); INFLUENZA B ANTIGEN Negative (Negative)
[2019-10-06 20:05] LABS: ABSOLUTE EOSINOPHILS 0.3 thou/uL (0.0-0.7); ABSOLUTE LYMPHOCYTES 1.6 thou/uL (0.8-5.3); ABSOLUTE MONOCYTES 0.8 thou/uL (0.0-1.2); BASOPHILS 0.7 %; EOSINOPHILS 3.8 %; HEMATOCRIT 33.5 % (42.0-52.0); HEMOGLOBIN 11.9 gm/dL (14.0-18.0); LYMPHOCYTES 23.5 %; MCH 33.5 pg (26.0-34.0); MCHC 35.6 g/dL (28.0-37.0); MCV 94.2 fL (80.0-100.0); MPV 6.9 fl. (7.2-11.1); NUCLEATED RBCS 0 /100WBC; PLATELET COUNT* 278 thou/uL (150-400); RBC 3.55 mil/uL (4.50-6.00); RDW-CV 13.3 % (10.5-14.5); WBC 6.7 thou/uL (4.0-11.0)
[2019-10-06 20:25] LABS: CALCIUM 8.2 mg/dL (8.5-10.1); CREATININE 0.7 mg/dL (0.6-1.3); POTASSIUM 3.5 mmol/L (3.5-5.1)
[2019-10-06 20:30] LABS: ALBUMIN 3.1 g/dL (3.4-5.0); TOTAL BILIRUBIN 0.2 mg/dL (<0.1-1.0); TOTAL PROTEIN 6.7 g/dL (6.4-8.2)
[2019-10-06] MEDS ORDERED: LIDOCAINE VISC100 ML SWISH&SPIT ×2 (20:33→20:35)
[2019-10-06] MEDS ORDERED: PROAIR HFA8.5 GM INH ×2 (20:33→20:35)
[2019-10-06] MEDS ORDERED: AZITHROMYCIN 2250 MG PO ×2 (20:33→20:35)
[2019-10-06 22:18] VITALS: BP 131/75
== END 2019-10-06 22:20 | disposition home or self-care (01) ==
LOC: M.ERS 18:29
PROVIDERS: Emergency Medicine; Nurse Practitioner Family
DX: J22 Unspecified acute lower respiratory infection (principal); F17.210 Nicotine dependence, cigarettes, uncomplicated; Z88.5 Allergy status to narcotic agent; Z88.6 Allergy status to analgesic agent; Z90.49 Acquired absence of other specified parts of digestive tract; Z85.118 Personal history of other malignant neoplasm of bronchus and lung; Z85.830 Personal history of malignant neoplasm of bone; Z85.89 Personal history of malignant neoplasm of other organs and systems; Z86.73 Personal history of transient ischemic attack (TIA), and cerebral infarction without residual deficits

== ENCOUNTER 2019-10-13 18:52 | Emergency (ER) | payer MEDICARE ==
[~2019-10-13] VITALS: Ht 175.3 cm; Wt 77.1 kg
[~2019-10-13 18:52] MED LIST changes: +AZITHROMYCIN 2250 MG PO; +LIDOCAINE VISC100 ML SWISH&SPIT; +LORAZEPAM 2MG TA2 M1 PO; +METHADONE HCL 110 M1 PO
[2019-10-13 19:34] LABS: INFLUENZA A ANTIGEN Negative (Negative); INFLUENZA B ANTIGEN Negative (Negative)
[2019-10-13 20:50] LABS: ABSOLUTE EOSINOPHILS 0.5 thou/uL (0.0-0.7); ABSOLUTE LYMPHOCYTES 1.7 thou/uL (0.8-5.3); ABSOLUTE MONOCYTES 0.8 thou/uL (0.0-1.2); ABSOLUTE NEUTROPHILS 3.2 thou/uL (1.6-8.1); BASOPHILS 0.8 %; EOSINOPHILS 7.6 %; HEMATOCRIT 35.5 % (42.0-52.0); HEMOGLOBIN 12.5 gm/dL (14.0-18.0); LYMPHOCYTES 27.6 %; MCH 33.6 pg (26.0-34.0); MCHC 35.3 g/dL (28.0-37.0); MCV 95.3 fL (80.0-100.0); MONOCYTES 12.3 %; MPV 6.9 fl. (7.2-11.1); NUCLEATED RBCS 0 /100WBC; PLATELET COUNT* 284 thou/uL (150-400); POLYS 51.7 %; RBC 3.73 mil/uL (4.50-6.00); RDW-CV 13.9 % (10.5-14.5); WBC 6.2 thou/uL (4.0-11.0)
[2019-10-13 20:58] LABS: PROTIME 10.1 Seconds (9.20-11.50)
[2019-10-13 21:00] LABS: ANION GAP 7 mmol/L (7-16); BUN 12 mg/dL (7-18); CHLORIDE 107 mmol/L (98-107); CO2 26 mmol/L (21-32); CREATININE 0.7 mg/dL (0.6-1.3); GLUCOSE 87 mg/dL (70-99); POTASSIUM 3.8 mmol/L (3.5-5.1); SODIUM 140 mmol/L (136-145)
[2019-10-13 21:10] LABS: ALBUMIN 2.8 g/dL (3.4-5.0); ALKALINE PHOSPHATASE 106 U/L (46-116); MAGNESIUM 1.9 mg/dL (1.8-2.4); NT-PRO BRAIN NAT PEPTIDE 62 pg/mL (<300); SGOT 18 U/L (15-37); SGPT 28 U/L (30-65); TOTAL BILIRUBIN 0.1 mg/dL (<0.1-1.0); TOTAL PROTEIN 6.2 g/dL (6.4-8.2)
[2019-10-13 23:06] VITALS: BP 129/68
--- NOTE | 2019-10-14 10:10 | EKG ---
[place] [address] ELECTROCARDIOGRAM REPORT Name: TERESA DYE ROBBY [id number] Admission: 10/13/19 Attend Phys: Discharge: 10/13/19 Date of : 64 Date of Service: 10/13/191952 Report #: [id number] THIS REPORT FOR: //name// [facility] ED Test Date: 2019-10-13 Test Time: 19:53:35 Pat Name: TERESA DYE Department: Room: Gender: Institutional Nutrition Consultant: : 1960 Requested By: Loyda Bowers Order Number: [id number] MD: Jadiel Angeles Measurements Intervals Clute Rate: 71 P: -1 HI: 203 QRS: -7 QRSD: 87 T: 30 QT: 357 QTc: 388 Interpretive Statements Sinus rhythm Borderline prolonged HI interval Low voltage, precordial leads Compared to ECG 08/14/2019 10:28:13 ST (T wave) deviation no longer present Electronically Signed On 10-14-2019 10:09:06 CDT by Jadiel Angeles [email or web address] <ELECTRONICALLY SIGNED> By: Jadiel Angeles MD, FAC 10/14/19 1009 [id number] 52 Jadiel Angeles MD, [facility] /EPI
[2019-10-14] MEDS ORDERED: PERCOCET 10-321 EAC1 PO (20:11)
== END 2019-10-13 23:09 | disposition home or self-care (01) ==
LOC: M.ERS 18:52
PROVIDERS: Emergency Medicine; Nurse Practitioner Family
DX: R05 Cough (principal); R50.9 Fever, unspecified; F17.210 Nicotine dependence, cigarettes, uncomplicated; Z86.73 Personal history of transient ischemic attack (TIA), and cerebral infarction without residual deficits; Z90.49 Acquired absence of other specified parts of digestive tract; Z85.118 Personal history of other malignant neoplasm of bronchus and lung; Z85.830 Personal history of malignant neoplasm of bone; Z85.89 Personal history of malignant neoplasm of other organs and systems; Z88.5 Allergy status to narcotic agent; Z88.6 Allergy status to analgesic agent

== ENCOUNTER 2019-10-14 19:17 | Inpatient (IN) | payer MEDICARE ==
[~2019-10-14] VITALS: Ht 175.3 cm; Wt 80.3 kg
[2019-10-14 19:20] VITALS: BP 141/84
[2019-10-14 19:53] LABS: ABSOLUTE BASOPHILS 0.1 thou/uL (0.0-0.2); ABSOLUTE EOSINOPHILS 0.3 thou/uL (0.0-0.7); ABSOLUTE MONOCYTES 0.8 thou/uL (0.0-1.2); ABSOLUTE NEUTROPHILS 4.4 thou/uL (1.6-8.1); BASOPHILS 1.2 %; EOSINOPHILS 4.5 %; HEMATOCRIT 40.9 % (42.0-52.0); HEMOGLOBIN 14.1 gm/dL (14.0-18.0); MCH 32.8 pg (26.0-34.0); MCHC 34.4 g/dL (28.0-37.0); MCV 95.3 fL (80.0-100.0); MONOCYTES 10.2 %; MPV 6.9 fl. (7.2-11.1); NUCLEATED RBCS 0 /100WBC; PLATELET COUNT* 285 thou/uL (150-400); POLYS 58.1 %; RBC 4.29 mil/uL (4.50-6.00); RDW-CV 13.8 % (10.5-14.5); WBC 7.6 thou/uL (4.0-11.0)
[2019-10-14 20:01] LABS: ANION GAP 9 mmol/L (7-16); BUN 14 mg/dL (7-18); CALCIUM 8.8 mg/dL (8.5-10.1); CHLORIDE 105 mmol/L (98-107); CO2 25 mmol/L (21-32); CREATININE 0.8 mg/dL (0.6-1.3); GLUCOSE 99 mg/dL (70-99); POTASSIUM 4.1 mmol/L (3.5-5.1); SODIUM 139 mmol/L (136-145)
[2019-10-14 20:05] LABS: INR 0.9; PROTIME 9.5 Seconds (9.20-11.50)
[2019-10-14 20:11] LABS: ALBUMIN 3.2 g/dL (3.4-5.0); ALKALINE PHOSPHATASE 123 U/L (46-116); LIPASE 91 U/L (73-393); NT-PRO BRAIN NAT PEPTIDE 67 pg/mL (<300); SGOT 21 U/L (15-37); SGPT 32 U/L (30-65); TOTAL PROTEIN 7.2 g/dL (6.4-8.2)
[2019-10-14] MEDS ORDERED: PERCOCET 10-321 EAC1 PO (20:11)
[2019-10-14 20:12] LABS: TOTAL BILIRUBIN < 0.1 mg/dL (<0.1-1.0)
[2019-10-14 22:15] VITALS: BP 125/76
[2019-10-14 22:30] VITALS: BP 141/81
[2019-10-15 03:55] VITALS: BP 116/74
--- NOTE | 2019-10-15 07:31 | NUR ---
PT ARRIVED TO UNIT AT 2225 VIA ER BED. SR WITH 1D ON MONITOR. HOURLY ROUNDING COMPLETED. PRN PAIN MEDICATION ADMINISTERED. SEE EMAR FOR DOCUMENTATION. HOURLY ROUNDING COMPLETED. CALL LIGHT WITHIN REACH.
[2019-10-15 08:00] VITALS: BP 132/79
[2019-10-15 11:48] VITALS: BP 120/73
--- NOTE | 2019-10-15 13:09 | EKG ---
[place] [address] ELECTROCARDIOGRAM REPORT Name: TERESA DYE Room: [address] ADM IN M.R.#: [id number] Admission: 10/14/19 Attend Phys: Nuzhat mcghee Sa Discharge: Date of : 64 Date of Service: 10/14/191926 Report #: [id number] THIS REPORT FOR: //name// 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: [place] : 1960 Requested By: Mary Brady Order Number: [id number] MD: Jadiel Angeles Measurements Intervals Elmo Rate: 79 P: 38 GA: 177 QRS: -11 QRSD: 93 T: 45 QT: 358 QTc: 411 Interpretive Statements Sinus rhythm Low voltage, precordial leads Minimal ST elevation, inferior leads Compared to ECG 10/13/2019 19:53:35 ST (T wave) deviation now present Electronically Signed On 10-15-2019 13:07:49 CDT by Jadiel Angeles [email or web address] <ELECTRONICALLY SIGNED> By: Jadiel Angeles MD, FACC 10/15/19 1307 26 26 Jadiel Angeles MD, FAC /EPI
[2019-10-15 16:07] VITALS: BP 156/90
--- NOTE | 2019-10-15 16:33 | NUR ---
SPOKE WITH PT.ON PHONE. HE WAS ALERT AND ORIENTED. STATED HE LIVES WITH HIS SON. PT.SAID HE IS INDEPENDENT AT HOME. NO USE OF DME. SON DOES NOT HAVE TO HELP HIM WITH ANYTHING AT HOME. HAS BEEN HAVING CHEST PAIN. CARDILOGY TO SEE TO SEE IF ANY OTHER REASONS FOR PAIN BESIDES CANCER. HE IS NOT INTERESTED AT THIS TIME IN HOSPICE. DOES HAVE A HX OF [facility].
[2019-10-15 20:07] VITALS: BP 144/85
[2019-10-16 00:13] VITALS: BP 142/82
[2019-10-16 04:22] VITALS: BP 140/83
--- NOTE | 2019-10-16 05:13 | NUR ---
PATIENT SLEPT WELL DURING THIS SHIFT. PT USES CALL LIGHT APPROPRIATELY FOR ASSISTANCE TO BATHROOM. PT UP WITH STANDBY. PT WITH FLUIDS INFUSING PER DR ORDER. PT REQUESTED DILUADID 1MG IV 3 DURING THIS SHIFT. PT ABLE TO RETURN TO SLEEP AFTERWARDS. FREQUENTLY USED ITEMS AND CALL LIGHT WITHIN REACH. SIDERAILS UPX2 AND BED ALARM ON. WILL CONTINUE TO MONITOR.
--- NOTE | 2019-10-16 06:28 | NUR ---
PATIENT SAID HE DID NOT FEEL HE COULD DO STRESS TEST TODAY. PT TOLD HE MAY NOT HAVE TO WALK THE TREADMILL BUT PERHAPS TEST COULD BE DONE WITH IV MEDICATION. PT SAID HIS RT ARM HURT TOO BAD TO DO IT. PT WAS TOLD HE COULD DISCUSS THIS WITH THE DOCTOR. PT'S SON CALLED SAID PT WANTED TO GO HOME AND HE WAS COMING TO GET HIM. IV REMOVED FROM PT'S AC AND PT ESCORTED TO ER TO GO HOME. DR WHITE NOTIFIED VIA YOUCALD THAT PT LEFT AMA. AMA PAPERS SIGNED AND ON CHART.
--- NOTE | 2019-10-16 06:48 | NUR ---
CALL PLACED TO ANSWERING SERVICE FOR DR CHOI/CARDIOLOGY AND DR WOOD/ ONCOLOGY TO LET THEM KNOW PT HAD LEFT AMA. STRESS TEST ALSO CANCELLED.
== END 2019-10-16 06:28 | disposition left against medical advice (07) | DRG 392 ==
LOC: M.ERS 19:17 → M.2W 21:31 → M.TBA-ER 21:31 → M.2W 22:32
PROVIDERS: Personal Emergency Response Attendant; ADMIT Family Medicine
DX: K29.00 Acute gastritis without bleeding (principal); C79.51 Secondary malignant neoplasm of bone; C78.00 Secondary malignant neoplasm of unspecified lung; K75.9 Inflammatory liver disease, unspecified; F17.210 Nicotine dependence, cigarettes, uncomplicated; I10 Essential (primary) hypertension; K44.9 Diaphragmatic hernia without obstruction or gangrene; Z66 Do not resuscitate; I25.118 Atherosclerotic heart disease of native coronary artery with other forms of angina pectoris; K22.70 Barrett's esophagus without dysplasia; Z90.49 Acquired absence of other specified parts of digestive tract; Z98.1 Arthrodesis status; Z90.89 Acquired absence of other organs; Z86.73 Personal history of transient ischemic attack (TIA), and cerebral infarction without residual deficits; Z88.5 Allergy status to narcotic agent; Z88.8 Allergy status to other drugs, medicaments and biological substances; I25.2 Old myocardial infarction; Z79.899 Other long term (current) drug therapy; Z03.818 Encounter for observation for suspected exposure to other biological agents ruled out; Z85.850 Personal history of malignant neoplasm of thyroid